=== PATIENT | female | born 1990 | race Caucasian/White ===

== ENCOUNTER → 2018-04-01 09:30 | Outpatient (CLI) | payer OTHER, SELFPAY ==
[2018-04-08 11:19] LABS: HPV Reflexed? NOT INDICATED
== END ==
PROVIDERS: Visit Provider Obstetrics & Gynecology
DX: Z12.4 Encounter for screening for malignant neoplasm of cervix (principal)
CPT/HCPCS: 88175; G0145

== ENCOUNTER → 2018-05-06 09:35 | Outpatient (CLI) | payer OTHER, SELFPAY ==
--- NOTE | 2018-05-06 09:39 | US_ITS ---
STUDY: ULTRASOUND OF THE FEMALE PELVIS - COMPLETE REASON FOR EXAM: Female, 27 years old. Irregular periods. LMP: April 30, 2018. TECHNIQUE: Transvaginal TECHNICAL QUALITY: Adequate. COMPARISON: None. FINDINGS: The uterus is anteverted and is in a midline position. The uterus measures 6.2 cm x 4.8 cm x 2.9 cm. Normal uterine cervix. The endometrium measures 1.1 mm in thickness, and is hyperechoic. There is no demonstrated endometrial mass. There is no demonstrated myometrial mass. I.U.D. - The patient does not have an I.U.D. The right ovary is visualized. The right ovary measures 2.3 cm x 3.0 cm x 2.4 cm. There is no right ovarian cyst or ovarian mass. There is no visualized right adnexal mass or complex lesion. There is normal arterial and normal venous vascularity. The left ovary is visualized. The left ovary measures 2.7 cm x 1.7 cm x 2.0 cm. There is no left ovarian cyst or ovarian mass. There is no visualized left adnexal mass or complex lesion. There is normal arterial and normal venous vascularity. There is no fluid in the cul-de-sac. Polycystic ovary disease: No. US/Transvaginal Non- IMPRESSION: Normal female pelvis. Electronically Signed: Jairo Brown MD at 12:49 EDT Tel [phone], Service support ,
== END ==
PROVIDERS: Family Provider Family Medicine; PCP Family Medicine; Visit Provider Obstetrics & Gynecology
DX: N92.6 Irregular menstruation, unspecified (principal)
CPT/HCPCS: 76830; 93976

== ENCOUNTER → 2018-08-30 11:25 | Outpatient (CLI) | payer OTHER, SELFPAY ==
[2018-04-01 09:12] VITALS: BMI 24.8
--- NOTE | 2018-08-30 11:30 | RAD_ITS ---
STUDY: HYSTEROSALPINGOGRAM. REASON FOR EXAM: Female, 27 years old. Infertility. FLUOROSCOPY TIME (if supplied): (1:03) minutes/seconds. 2 fluoroscopic images were obtained. TECHNIQUE: A hysterosalpingogram was performed by the maintenance mechanic engine. Imaging was provided. COMPARISON: None. FINDINGS: There is opacification of the uterus. No uterine abnormalities seen. The fallopian tubes are not visualized. RAD/Salpingogram IMPRESSION: Nonvisualization of the fallopian tubes. Electronically Signed: Jairo Brown MD at 15:48 EST Tel [phone], Service support ,
--- NOTE | 2018-09-01 05:30 | OP.PCM_ITS ---
Problem List (1) Irregular menses Status: Acute Comment: US bloodwork (2) Primary female infertility Status: Acute Comment: recommend full workup. nlFSH low normal estradiol Operative Report Date of Procedure: 08/30/18 Preop diagnosis: Infertility Postop diagnosis: Same plus bilateral tubal blockage Procedure: Hysterosalpingogram Surgeon: Rocio Ospina Implantable devices: None Complications: None Findings: Bilateral tubal blockage beginning proximally and normal uterine cavity Operative details: Patient was taken to the x-ray room and was placed on the x- ray table and was in the dorsal lithotomy position. Speculum was placed in the vagina and the cervix prepped with Betadine and the HSG catheter was easily introduced into the uterus and speculum removed. Radiologist was brought in and while pushing radiopaque dye into the uterus via the HSG catheter the radiologist took multiple images and views and confirmed bilateral tubal blockage was seen proximally. No gross uterine filling defects or abnormalities were seen. All instruments removed from the vagina and the uterus without complication. Patient tolerated the procedure well.
== END ==
PROVIDERS: Family Provider Family Medicine; PCP Family Medicine; Referring Provider Obstetrics & Gynecology; Visit Provider Obstetrics & Gynecology
DX: N97.9 Female infertility, unspecified (principal)
CPT/HCPCS: 58340; 74740

== ENCOUNTER → 2019-05-25 11:40 | Outpatient (CLI) | payer OTHER, SELFPAY ==
[2019-05-25 11:11] VITALS: BMI 24.8
[2019-05-25 12:08] LABS: Absolute Lymphocyte Count 1.61 X10^3/uL (0.83-4.51); Absolute Neutrophil Count 9.1 X10^3/uL (2.0-7.7); Basophil# 0.04 X10^3/uL; Basophil% 0.3 % (0-1); Eosinophil# 0.11 X10^3/uL; Eosinophils% 0.9 % (0-5); Hemoglobin 13.5 g/dL (12.0-15.0); Lymphocyte # 1.61 X10^3/ul (4.0); Lymphocyte % 13.8 % (19-41); Mean Corp Hgb Conc 33.8 g/dL (32-36); Mean Corpuscular Hgb 31.6 pg (27.0-32.0); Mean Corpuscular Volume 93.7 fL (81-99); Mean Platelet Vol. 8.5 fl (6.2-12.0); Monocyte# 0.78 X10^3/uL; Monocyte% 6.7 % (0-10); NRBC Flagged by Analyzer 0 % (0-5); Neutrophil # 9.08 X10^3/uL (2.7-7.7); Neutrophil % 77.7 % (47-70); Platelet Count 296 K/mm3 (150-450); RBC Distribution Width CV 13.2 % (11.6-14.6); RBC Distribution Width SD 45.5 fl (35.1-43.9); Red Blood Count 4.27 M/mm3 (4.2-5.4); White Blood Count 11.7 K/mm3 (4.4-11.0)
[2019-05-25 13:29] LABS: HIV - WCH Non-Reactive (Nonreactive); Rubella IgG 52.8 IU/mL
[2019-05-27 02:41] LABS: Rapid Plasmin Reagin (RPR) NONREACTIVE (NONREACTIVE)
== END ==
PROVIDERS: Family Provider Family Medicine; PCP Family Medicine; Referring Provider Obstetrics & Gynecology; Visit Provider Obstetrics & Gynecology
DX: Z34.92 Encounter for supervision of normal pregnancy, unspecified, second trimester (principal); Z3A.20 20 weeks gestation of pregnancy
CPT/HCPCS: 36415; 85025; 86592; 86703; 86762; 86850; 86900; 86901

== ENCOUNTER → 2019-06-22 10:51 | Outpatient (CLI) | payer OTHER, SELFPAY ==
[2019-06-22 10:41] VITALS: BMI 24.8
[2019-06-22 11:19] LABS: Absolute Lymphocyte Count 1.54 X10^3/uL (0.83-4.51); Absolute Neutrophil Count 10.7 X10^3/uL (2.0-7.7); Basophil# 0.04 X10^3/uL; Basophil% 0.3 % (0-1); Eosinophil# 0.19 X10^3/uL; Eosinophils% 1.4 % (0-5); Hematocrit 40.3 % (37-47); Hemoglobin 13.6 g/dL (12.0-15.0); Lymphocyte # 1.54 X10^3/ul (4.0); Lymphocyte % 11.4 % (19-41); Mean Corp Hgb Conc 33.7 g/dL (32-36); Mean Corpuscular Hgb 31.7 pg (27.0-32.0); Mean Corpuscular Volume 93.9 fL (81-99); Mean Platelet Vol. 8.4 fl (6.2-12.0); Monocyte# 0.93 X10^3/uL; Monocyte% 6.9 % (0-10); NRBC Flagged by Analyzer 0 % (0-5); Neutrophil # 10.69 X10^3/uL (2.7-7.7); Neutrophil % 79.5 % (47-70); Platelet Count 314 K/mm3 (150-450); RBC Distribution Width CV 12.3 % (11.6-14.6); RBC Distribution Width SD 42.3 fl (35.1-43.9); Red Blood Count 4.29 M/mm3 (4.2-5.4); White Blood Count 13.5 K/mm3 (4.4-11.0)
[2019-06-22 11:28] LABS: Protein, Urine (Random) 8.4 mg/dL (<11.9); Protein:Creat Ratio 622 mg/g CRE (0-200)
[2019-06-22 11:34] LABS: ALB/GLOB Ratio 0.9 RATIO (0.9-2.4); AST(SGOT) 33 U/L (15-37); Alanine Aminotransfer ALT/SGPT 54 U/L (13-56); Albumin, Serum 3.2 g/dL (3.2-5.0); Alkaline Phosphatase 136 U/L (45-117); Anion Gap 5 (5-15); BUN 14 mg/dL (7-18); BUN/Creat Ratio 29.8 RATIO (10-20); Calcium,Total 8.7 mg/dL (8.5-10.1); Chloride 107 mmol/L (98-107); Creatinine, Serum 0.47 mg/dL (0.55-1.02); EST Glomerular Filtration Rate 168 mL/min (>60); Est Glom Filt Rate - Afr Amer 204 mL/min (>60); Globulin 3.7 g/dL (2.2-4.2); Glucose 88 mg/dL (74-106); Potassium 4.3 mmol/L (3.5-5.1); Protein, Total 6.9 g/dL (6.4-8.2); Sodium Level 139 mmol/L (136-145)
== END ==
PROVIDERS: Family Provider Family Medicine; PCP Family Medicine; Referring Provider Obstetrics & Gynecology; Visit Provider Obstetrics & Gynecology
DX: O16.2 Unspecified maternal hypertension, second trimester (principal)
CPT/HCPCS: 36415; 80053; 82570; 84156; 85025

== ENCOUNTER → 2019-06-24 06:35 | Outpatient (CLI) | payer OTHER, SELFPAY ==
[2019-06-22 10:41] VITALS: BMI 24.8
[2019-06-24 07:22] LABS: 24 Hour Urine Protein 412.3 mg/24HR (<150 MG/24HR); 24HR. UA Prot. Total Volume 3100 mL; 24HR. Urine Creatinine 1.31 g/24 HR (0.70-1.90); Urine Protein (24 Hour) 13.3 mg/dL (<11.9)
== END ==
PROVIDERS: Family Provider Family Medicine; PCP Family Medicine; Referring Provider Obstetrics & Gynecology; Visit Provider Obstetrics & Gynecology
DX: R80.9 Proteinuria, unspecified (principal); Z86.79 Personal history of other diseases of the circulatory system
CPT/HCPCS: 82570; 84156

== ENCOUNTER → 2019-07-20 10:01 | Outpatient (CLI) | payer OTHER, SELFPAY ==
[2019-07-20 09:16] VITALS: BMI 31.4
[2019-07-20 11:14] LABS: Absolute Lymphocyte Count 1.41 X10^3/uL (0.83-4.51); Basophil# 0.04 X10^3/uL; Basophil% 0.4 % (0-1); Eosinophil# 0.12 X10^3/uL; Eosinophils% 1.1 % (0-5); Hemoglobin 12.5 g/dL (12.0-15.0); Lymphocyte # 1.41 X10^3/ul (4.0); Lymphocyte % 12.6 % (19-41); Mean Corp Hgb Conc 32.9 g/dL (32-36); Mean Corpuscular Hgb 30.4 pg (27.0-32.0); Mean Corpuscular Volume 92.5 fL (81-99); Mean Platelet Vol. 8.7 fl (6.2-12.0); Monocyte# 0.59 X10^3/uL; Monocyte% 5.3 % (0-10); NRBC Flagged by Analyzer 0 % (0-5); Neutrophil % 80.1 % (47-70); Platelet Count 304 K/mm3 (150-450); RBC Distribution Width SD 39.8 fl (35.1-43.9); Red Blood Count 4.11 M/mm3 (4.2-5.4); White Blood Count 11.2 K/mm3 (4.4-11.0)
[2019-07-20 11:35] LABS: Glucose Challenge Gest 1H 50g 130 mg/dL (70-140)
[2019-07-20 15:53] LABS: Protein:Creat Ratio 608 mg/g CRE (0-200)
== END ==
PROVIDERS: Family Provider Family Medicine; PCP Family Medicine; Referring Provider Nurse Practitioner Women's Health; Visit Provider Nurse Practitioner Women's Health
DX: O09.00 Supervision of pregnancy with history of infertility, unspecified trimester (principal); Z86.79 Personal history of other diseases of the circulatory system; Z3A.00 Weeks of gestation of pregnancy not specified
CPT/HCPCS: 36415; 82570; 82950; 84156; 85025

== ENCOUNTER → 2019-08-05 09:20 | Outpatient (CLI) | payer OTHER, SELFPAY ==
[2019-08-05 09:16] VITALS: BMI 31.4
[2019-08-05 09:38] LABS: Protein, Urine (Random) < 6.0 mg/dL (<11.9)
== END ==
PROVIDERS: Family Provider Family Medicine; PCP Family Medicine; Visit Provider Obstetrics & Gynecology
DX: Z86.79 Personal history of other diseases of the circulatory system (principal)
CPT/HCPCS: 82570; 84156

== ENCOUNTER 2019-08-18 14:18 | Outpatient (CLI) | payer OTHER, SELFPAY ==
[2019-08-18 13:41] VITALS: BMI 31.4
[2019-08-18 14:28] VITALS: BMI 33.0
--- NOTE | 2019-08-21 05:40 | OB.TRI.PN ---
Progress Notes Date of Service: 08/18/19 Progress Note: FHT: 140 Moderate variability reactive no decelerations category I tracing [place]: no regular Contractions - Problem List (1) History of hypertension Status: Acute Comment: Wkly NST and RG at 32 wk and growth US q4 wk at 32wk check labs. home bp monitoring. no meds since large weight loss. (2) Status: Acute Qualifiers: Comment: nipt girl low risk. declines ntd screening. Anatomy US normal. (3) Supervision of with history of infertility Status: Acute Comment: PRR (Hep B) ALICE 10/10/19 girl Michelle Juve Multi Select Codes - Urinary/Genital Urinary/Genital CPT Codes: 17500-92 non-stress test Interp
== END 2019-08-18 14:55 | disposition home or self-care (01) ==
LOC: WPOUT 14:24 → WP 14:25
PROVIDERS: Family Provider Family Medicine; PCP Family Medicine; Referring Provider Obstetrics & Gynecology; Visit Provider Obstetrics & Gynecology
DX: O16.9 Unspecified maternal hypertension, unspecified trimester (principal); O09.00 Supervision of pregnancy with history of infertility, unspecified trimester; Z3A.00 Weeks of gestation of pregnancy not specified
CPT/HCPCS: 59025

== ENCOUNTER → 2019-08-19 08:33 | Outpatient (CLI) | payer OTHER, SELFPAY ==
[2019-08-18 13:41] VITALS: BMI 31.4
[2019-08-18 14:28] VITALS: BMI 33.0
--- NOTE | 2019-08-19 08:35 | US_ITS ---
STUDY: SECOND AND THIRD TRIMESTER OBSTETRICAL ULTRASOUND REASON FOR EXAM: Female, 28 years old. Growth. LMP: Provided due date of October 10, 2019. TECHNIQUE: Transabdominal TECHNICAL QUALITY: Adequate. PRIOR ULTRASOUND: None. FINDINGS: There is a single intrauterine fetus. The fetus is in a cephalic presentation. There is demonstrated cardiac activity with a heart rate of 140 bpm. There is a normal amniotic fluid volume. The largest amniotic fluid pocket measures 3.34 cm. The amniotic fluid index (RG) is 9.01 cm. The placenta is anterior in location and is not low lying. There are Grade 1 placental changes. Venous lakes are seen within the placenta. The cervix measures 3.4 cm in length. The adnexal regions are not visualized. BIOMETRY: BPD: 8.3 cm: 33 weeks, 2 days HC: 10.45 cm: 32 weeks, 5 days AC: 30.53 cm: 33 weeks, 6 days FL: 6.03 cm: 31 weeks, 2 days CI: 79.38 FL/BPD: 72.78 FL/HC: 21.1 FL/AC: 19.77 HC/AC: 1.07 age by current US: 32 weeks, 5 days. ALICE by current US: October 09, 2019. Estimated weight: 1978 grams, +/- 293 grams, 37 %. Age by LMP: 32 weeks, 4 days. ALICE by LMP: October 10, 2019. US/OB Limited With Biometrics IMPRESSION: 1. Live single intrauterine at 32 weeks, 5 days. ALICE is October 09, 2019. This correlates with the provided ALICE. 2. EFW 1978 g. 3. RG of 9.01 cm. 4. Anterior grade 1 placenta. 5. Vertex presentation. Electronically Signed: Nick Mclain DO at 23:48 EST Tel [phone], Service support ,
== END ==
PROVIDERS: Family Provider Family Medicine; PCP Family Medicine; Referring Provider Nurse Practitioner Women's Health; Visit Provider Nurse Practitioner Women's Health
DX: Z86.79 Personal history of other diseases of the circulatory system (principal)
CPT/HCPCS: 76816

== ENCOUNTER → 2019-09-02 18:14 | Outpatient (CLI) | payer OTHER, SELFPAY ==
[2019-09-01 08:51] VITALS: BMI 33.0
--- NOTE | 2019-09-02 18:29 | US_ITS ---
STUDY: SECOND AND THIRD TRIMESTER OBSTETRICAL ULTRASOUND - LIMITED REASON FOR EXAM: Female, 28 years old RG assessment. LMP: January 03, 2019. PRIOR ULTRASOUND: Comparison is made with prior examination dated August 19, 2019. TECHNIQUE: Transabdominal TECHNICAL QUALITY: Adequate. FINDINGS: There is a single intrauterine fetus. The fetus is in a cephalic presentation. There is demonstrated cardiac activity with a heart rate of 140 bpm. There is a normal amniotic fluid volume. The largest amniotic fluid pocket measures 5.6 cm. The amniotic fluid index (RG) is 15.35 cm. The placenta is anterior in location and is not low lying. There are Grade 2 placental changes. The cervix measures 3.24 cm in length. US/OB Limited (No Biometrics) IMPRESSION: Normal amniotic fluid. Electronically Signed: Jairo Brown, at 8:45 EST , Service support ,
== END ==
PROVIDERS: Family Provider Family Medicine; PCP Family Medicine; Referring Provider Nurse Practitioner Women's Health; Visit Provider Nurse Practitioner Women's Health
DX: Z03.71 Encounter for suspected problem with amniotic cavity and membrane ruled out (principal)
CPT/HCPCS: 76815

== ENCOUNTER → 2019-09-07 08:41 | Outpatient (CLI) | payer OTHER, SELFPAY ==
[2019-09-07 08:41] VITALS: BMI 33.0
[2019-09-07 08:57] LABS: Absolute Lymphocyte Count 1.37 X10^3/uL (0.83-4.51); Absolute Neutrophil Count 9.7 X10^3/uL (2.0-7.7); Basophil# 0.05 X10^3/uL; Basophil% 0.4 % (0-1); Eosinophils% 1.6 % (0-5); Hematocrit 38.2 % (37-47); Hemoglobin 12.5 g/dL (12.0-15.0); Lymphocyte # 1.37 X10^3/ul (4.0); Mean Corp Hgb Conc 32.7 g/dL (32-36); Mean Corpuscular Volume 88.6 fL (81-99); Mean Platelet Vol. 8.4 fl (6.2-12.0); Monocyte# 1.03 X10^3/uL; Monocyte% 8.3 % (0-10); NRBC Flagged by Analyzer 0 % (0-5); Neutrophil # 9.73 X10^3/uL (2.7-7.7); Platelet Count 298 K/mm3 (150-450); RBC Distribution Width CV 12.6 % (11.6-14.6); Red Blood Count 4.31 M/mm3 (4.2-5.4); White Blood Count 12.5 K/mm3 (4.4-11.0)
[2019-09-07 09:11] LABS: Creatinine, Urine (random) < 13.00 mg/dL (NO RANGE EST.); Protein, Urine (Random) < 6.0 mg/dL (<11.9)
[2019-09-07 09:12] LABS: ALB/GLOB Ratio 0.7 RATIO (0.9-2.4); AST(SGOT) 10 U/L (15-37); Alanine Aminotransfer ALT/SGPT 23 U/L (13-56); Albumin, Serum 2.9 g/dL (3.2-5.0); Alkaline Phosphatase 156 U/L (45-117); Anion Gap 4 (5-15); BUN 13 mg/dL (7-18); BUN/Creat Ratio 22.6 RATIO (10-20); Calcium,Total 8.6 mg/dL (8.5-10.1); Chloride 109 mmol/L (98-107); Creatinine, Serum 0.58 mg/dL (0.55-1.02); EST Glomerular Filtration Rate 133 mL/min (>60); Est Glom Filt Rate - Afr Amer 161 mL/min (>60); Globulin 3.9 g/dL (2.2-4.2); Glucose 85 mg/dL (74-106); Protein, Total 6.8 g/dL (6.4-8.2); Sodium Level 139 mmol/L (136-145)
== END ==
PROVIDERS: Family Provider Family Medicine; PCP Family Medicine; Referring Provider Obstetrics & Gynecology; Visit Provider Obstetrics & Gynecology
DX: Z86.79 Personal history of other diseases of the circulatory system (principal)
CPT/HCPCS: 36415; 80053; 82570; 84156; 85025

== ENCOUNTER 2019-09-12 06:00 | Outpatient (CLI) | payer OTHER, SELFPAY ==
[2019-09-07 08:41] VITALS: BMI 33.0
[2019-09-12 06:28] VITALS: BMI 33.9
[2019-09-12 07:12] LABS: Hematocrit 38.2 % (37-47); Hemoglobin 12.5 g/dL (12.0-15.0); Mean Corp Hgb Conc 32.7 g/dL (32-36); Mean Corpuscular Hgb 28.7 pg (27.0-32.0); Mean Corpuscular Volume 87.6 fL (81-99); Mean Platelet Vol. 8.7 fl (6.2-12.0); Platelet Count 283 K/mm3 (150-450); RBC Distribution Width CV 12.9 % (11.6-14.6); RBC Distribution Width SD 40.9 fl (35.1-43.9); Red Blood Count 4.36 M/mm3 (4.2-5.4)
[2019-09-12 07:27] LABS: Protein, Urine (Random) 10.1 mg/dL (<11.9); Protein:Creat Ratio 342 mg/g CRE (0-200)
[2019-09-12 07:27] LABS: AST(SGOT) 34 U/L (15-37); Alanine Aminotransfer ALT/SGPT 48 U/L (13-56); Creatinine, Serum 0.59 mg/dL (0.55-1.02); EST Glomerular Filtration Rate 129 mL/min (>60); Est Glom Filt Rate - Afr Amer 156 mL/min (>60); Estimated Creatinine Clearance 134.08 ml/min; Uric Acid 4.5 mg/dL (2.6-6.0)
[2019-09-12 07:35] LABS: Prothrombin Time (Protime)PT. 12.6 SECONDS (11.7-14.9)
[2019-09-12 07:36] LABS: Partial Thromboplast Time 32.9 Seconds (24.1-36.2)
[2019-09-12] MEDS: 0.9% Saline Lock 10 ML Syringe IV (07:52)
[2019-09-12] MEDS: Ondansetron 4 MG/2 ML Vial IV (07:52)
--- NOTE | 2019-09-13 05:27 | OB.TRI.NOTE ---
- Problem List (1) Nausea & vomiting Status: Resolved (2) False labor Status: Resolved History of Present Illness Was patient seen by the physician?: No Reason For Visit: R/O LABOR History of Present Illness: seen for false labor Allergies No Known Allergies Allergy (Verified 09/14/19 09:13) - Pertinent Past Medical History Surgical History: Past Surgical History (Last Reviewed 09/07/19 @ 07:56 by Leisa Naranjo) S/P tonsillectomy Laboratory Studies: Laboratory Tests 09/12/19 09/12/19 09/12/19 Range/Units 07:15 07:00 07:00 WBC (4.4-11.0) K/mm3 RBC (4.2-5.4) M/mm3 Hgb (12.0-15.0) g/dL Hct (37-47) % MCV (81-99) fL MCH (27.0-32.0) pg MCHC (32-36) g/dL RDW Std Deviation (35.1-43.9) fl RDW Coeff of Corwin (11.6-14.6) % Plt Count (150-450) K/mm3 MPV (6.2-12.0) fl PT 12.6 Cancelled INR 1.0 Cancelled APTT 32.9 Cancelled Creatinine 0.59 (0.55-1.02) mg/dL Estim Creat Clear Calc 134.08 ml/min Est GFR (MDRD) Af Amer 156 (>60) mL/min Est GFR (MDRD) Non-Af 129 (>60) mL/min Uric Acid 4.5 (2.6-6.0) mg/dL AST 34 (15-37) U/L ALT 48 (13-56) U/L U Random Total Protein (<11.9) mg/dL Urine Creatinine (NO RANGE EST.) mg/dL Protein/Creatinin Ratio (0-200) mg/g CRE 09/12/19 09/12/19 Range/Units 07:00 06:45 WBC 7.0 (4.4-11.0) K/mm3 RBC 4.36 (4.2-5.4) M/mm3 Hgb 12.5 (12.0-15.0) g/dL Hct 38.2 (37-47) % MCV 87.6 (81-99) fL MCH 28.7 (27.0-32.0) pg MCHC 32.7 (32-36) g/dL RDW Std Deviation 40.9 (35.1-43.9) fl RDW Coeff of Corwin 12.9 (11.6-14.6) % Plt Count 283 (150-450) K/mm3 MPV 8.7 (6.2-12.0) fl PT INR APTT Creatinine (0.55-1.02) mg/dL Estim Creat Clear Calc ml/min Est GFR (MDRD) Af Amer (>60) mL/min Est GFR (MDRD) Non-Af (>60) mL/min Uric Acid (2.6-6.0) mg/dL AST (15-37) U/L ALT (13-56) U/L U Random Total Protein 10.1 (<11.9) mg/dL Urine Creatinine 29.50 (NO RANGE EST.) mg/dL Protein/Creatinin Ratio 342 H (0-200) mg/g CRE NST - FHR Rate Baby A Baseline: 130 Variability:: Moderate Accelerations:: 15 x 15 Decelerations:: None NST Reactive:: Yes FHR Category:: Category I Uterine Activity:: no regular Impression/Plan false labor reactive nst Multi Select Codes - Urinary/Genital Urinary/Genital CPT Codes: 76116-08 non-stress test Interp
== END 2019-09-12 08:30 | disposition home or self-care (01) ==
LOC: WPOUT 06:27 → WP 06:27
PROVIDERS: PCP Family Medicine; Referring Provider Obstetrics & Gynecology; Visit Provider Obstetrics & Gynecology
DX: O47.9 False labor, unspecified (principal); Z3A.00 Weeks of gestation of pregnancy not specified
CPT/HCPCS: 36415; 59025; 59050; 82565; 82570; 84156; 84450; 84460; 84550; 85027; 85610; 85730; 99218; A4216; G0378; J2405

== ENCOUNTER → 2019-09-14 08:35 | Outpatient (CLI) | payer OTHER, SELFPAY ==
[2019-08-18 13:41] VITALS: BMI 31.4
[2019-09-12 06:28] VITALS: BMI 33.9
--- NOTE | 2019-09-14 08:37 | US_ITS ---
STUDY: SECOND AND THIRD TRIMESTER OBSTETRICAL ULTRASOUND REASON FOR EXAM: Female, 28 years old growth LMP: January 02, 2019. TECHNIQUE: Transabdominal TECHNICAL QUALITY: Adequate. PRIOR ULTRASOUND: Comparison is made with prior examination dated September 02, 2019. FINDINGS: There is a single intrauterine fetus. The fetus is in a cephalic presentation. There is demonstrated cardiac activity with a heart rate of 136 bpm. There is a normal amniotic fluid volume. The largest amniotic fluid pocket measures 5.5 cm. The amniotic fluid index (RG) is 13.5 cm. The placenta is anterior in location and is not low lying. There are Grade 1 placental changes. The cervix measures 3.5 cm in length. The adnexal regions are not visualized. BIOMETRY: BPD: 9.06 cm: 36 weeks, 5 days HC: 33.19 cm: 37 weeks, 5 days AC: 33.0 cm: 36 weeks, 6 days FL: 6.77 cm: 34 weeks, 5 days CI: 79% FL/BPD: 75% FL/HC: FL/AC: 21% HC/AC: 1.01 age by current US: 37 weeks, 0 days. ALICE by current US: October 05, 2019. Estimated weight: 2949 grams, +/- 436 grams, 54 %. age by prior US: 36 weeks, 3 days. ALICE by prior US: October 09, 2019. Age by LMP: 36 weeks, 2 days. ALICE by LMP: October 10, 2019. US/OB Limited With Biometrics IMPRESSION: Single live intrauterine gestation with a mean gestational age of 36 weeks and 3 days. The measurements obtained today fall within normal expected range. Electronically Signed: Jairo Brown, at 15:44 EST , Service support ,
[2019-09-14 14:04] LABS: Protein, Urine (Random) 7.9 mg/dL (<11.9); Protein:Creat Ratio 391 mg/g CRE (0-200)
== END ==
PROVIDERS: Obstetrics & Gynecology; Family Provider Family Medicine; PCP Family Medicine; Referring Provider Nurse Practitioner Women's Health; Visit Provider Nurse Practitioner Women's Health
DX: Z34.93 Encounter for supervision of normal pregnancy, unspecified, third trimester (principal); Z3A.36 36 weeks gestation of pregnancy; Z86.79 Personal history of other diseases of the circulatory system
CPT/HCPCS: 76816; 82570; 84156; 87081

== ENCOUNTER → 2019-09-21 08:47 | Outpatient (CLI) | payer OTHER, SELFPAY ==
[2019-09-01 08:51] VITALS: BMI 33.0
[2019-09-14 09:17] VITALS: BMI 33.9
--- NOTE | 2019-09-21 08:48 | US_ITS ---
STUDY: SECOND AND THIRD TRIMESTER OBSTETRICAL ULTRASOUND - LIMITED REASON FOR EXAM: Female, 28 years old RG LMP: January 03, 2019. PRIOR ULTRASOUND: Comparison is made with prior examination dated September 14, 2019. TECHNIQUE: Transabdominal TECHNICAL QUALITY: Adequate. FINDINGS: There is a single intrauterine fetus. The fetus is in a cephalic presentation. There is demonstrated cardiac activity with a heart rate of 144 bpm. There is a normal amniotic fluid volume. The largest amniotic fluid pocket measures 5.0 cm. The amniotic fluid index (RG) is 11.0 cm. The placenta is anterior in location and is not low lying. There are Grade 1 placental changes. Age by LMP: 37 weeks, 2 days. ALICE by LMP: October 10, 2019. US/OB Limited (No Biometrics) IMPRESSION: Normal amniotic fluid index. Electronically Signed: Jairo Brown, at 15:01 EST , Service support ,
[2019-09-21 10:44] LABS: Absolute Lymphocyte Count 1.88 X10^3/uL (0.83-4.51); Absolute Neutrophil Count 10.9 X10^3/uL (2.0-7.7); Basophil# 0.04 X10^3/uL; Basophil% 0.3 % (0-1); Eosinophil# 0.23 X10^3/uL; Eosinophils% 1.6 % (0-5); Hematocrit 38.4 % (37-47); Hemoglobin 12.5 g/dL (12.0-15.0); Lymphocyte # 1.88 X10^3/ul (4.0); Lymphocyte % 13.3 % (19-41); Mean Corp Hgb Conc 32.6 g/dL (32-36); Mean Corpuscular Volume 86.1 fL (81-99); Mean Platelet Vol. 8.6 fl (6.2-12.0); Monocyte# 0.95 X10^3/uL; Monocyte% 6.7 % (0-10); NRBC Flagged by Analyzer 0 % (0-5); Neutrophil # 10.93 X10^3/uL (2.7-7.7); Neutrophil % 77.5 % (47-70); Platelet Count 321 K/mm3 (150-450); RBC Distribution Width CV 12.8 % (11.6-14.6); RBC Distribution Width SD 39.6 fl (35.1-43.9); Red Blood Count 4.46 M/mm3 (4.2-5.4); White Blood Count 14.1 K/mm3 (4.4-11.0)
[2019-09-21 11:03] LABS: ALB/GLOB Ratio 0.7 RATIO (0.9-2.4); AST(SGOT) 17 U/L (15-37); Alanine Aminotransfer ALT/SGPT 36 U/L (13-56); Albumin, Serum 2.8 g/dL (3.2-5.0); Alkaline Phosphatase 179 U/L (45-117); Anion Gap 5 (5-15); BUN 11 mg/dL (7-18); Calcium,Total 8.6 mg/dL (8.5-10.1); Chloride 107 mmol/L (98-107); Creatinine, Serum 0.55 mg/dL (0.55-1.02); EST Glomerular Filtration Rate 140 mL/min (>60); Est Glom Filt Rate - Afr Amer 170 mL/min (>60); Globulin 3.9 g/dL (2.2-4.2); Glucose 90 mg/dL (74-106); Potassium 4.2 mmol/L (3.5-5.1); Protein, Total 6.7 g/dL (6.4-8.2); Sodium Level 136 mmol/L (136-145)
== END ==
PROVIDERS: Obstetrics & Gynecology; Family Provider Family Medicine; PCP Family Medicine; Referring Provider Nurse Practitioner Women's Health; Visit Provider Nurse Practitioner Women's Health
DX: Z86.79 Personal history of other diseases of the circulatory system (principal)
CPT/HCPCS: 36415; 76815; 80053; 85025

== ENCOUNTER 2019-09-26 12:22 | Inpatient (IN) | payer OTHER, SELFPAY ==
[2019-06-29 09:26] VITALS: BMI 31.4
[2019-09-21 09:18] VITALS: BMI 33.9
[2019-09-26 07:42] VITALS: BMI 34.2
[2019-09-26 08:04] LABS: Hematocrit 38.5 % (37-47); Hemoglobin 12.4 g/dL (12.0-15.0); Mean Corp Hgb Conc 32.2 g/dL (32-36); Mean Corpuscular Hgb 27.5 pg (27.0-32.0); Mean Corpuscular Volume 85.4 fL (81-99); Mean Platelet Vol. 8.6 fl (6.2-12.0); Platelet Count 354 K/mm3 (150-450); RBC Distribution Width SD 39.8 fl (35.1-43.9); Red Blood Count 4.51 M/mm3 (4.2-5.4); White Blood Count 12.3 K/mm3 (4.4-11.0)
[2019-09-26 08:12] LABS: International Normalized Ratio 0.9; Prothrombin Time (Protime)PT. 12.2 SECONDS (11.7-14.9)
[2019-09-26 08:13] LABS: Partial Thromboplast Time 30.9 Seconds (24.1-36.2)
[2019-09-26 08:14] LABS: Protein, Urine (Random) < 6.0 mg/dL (<11.9); Protein:Creat Ratio 267 mg/g CRE (0-200)
[2019-09-26 08:18] LABS: AST(SGOT) 13 U/L (15-37); Alanine Aminotransfer ALT/SGPT 22 U/L (13-56); EST Glomerular Filtration Rate 126 mL/min (>60); Est Glom Filt Rate - Afr Amer 152 mL/min (>60); Estimated Creatinine Clearance 131.85 ml/min; Uric Acid 3.6 mg/dL (2.6-6.0)
[2019-09-26] MEDS: Acetaminophen 500 MG Tablet 1000 MG PO (08:20)
--- NOTE | 2019-09-26 13:15 | PCM.HP.OB ---
- Problem List (1) History of hypertension Status: Acute Comment: Wkly NST and RG at 32 wk and growth US q4 wk at 32wk. Weekly pre-eclampsia labs. nl baseline labs. home bp monitoring nl. no meds since weight loss. discussed IOL 39-40 weeks (2) Status: Acute Qualifiers: Comment: nipt girl low risk. declines ntd screening. Anatomy US normal. (3) Supervision of with history of infertility Status: Acute Comment: PRR ALICE 10/10/19 girl Michelle Thania History Date of Admission: 09/26/19 Final ALICE: 10/10/19 Gestational age: 38 Weeks and 0 Days History of this : This is a 28 year-old, , at 38 weeks gestational age presents for induction of labor secondary to chronic hypertension and headache in . Patient is a history of chronic hypertension that has been uncontrolled on medications in the past and resolved with weight loss. She has had intermittent elevated blood pressures throughout this but has not required medication. Today she developed elevated blood pressures at home for the first time in the whole and complains of dizziness headache to the point where she does not feel comfortable driving. Repeat preeclampsia labs are within normal limits. Surgical History: Surgical History (Last Reviewed 09/07/19 @ 07:56 by Leisa Naranjo) S/P tonsillectomy Z90.89 Allergies No Known Allergies Allergy (Verified 09/26/19 08:01) Home Medications: Home Medications vitamin#30 30 mg iron-10 mg iron-folic acid 1 mg-omg3 capsule 1 cap PO DAILY cap 04/27/19 ondansetron 4 mg disintegrating tablet 4 mg PO Q4H PRN #60 tab 09/13/19 Smoking Status: Never smoker Number of Fetus(es): 1 NST - FHR Rate Baby A Baseline: 130 Variability:: Moderate Accelerations:: 15 x 15 Decelerations:: None NST Reactive:: Yes FHR Category:: Category I Uterine Activity:: no regular History Past Pregnancies: Past Pregnancies Delivery Date Name GA/ Weeks Outcome Route Wt Infant Sex Labor Length Anesthesia Delivery Location Provider FOB Labs: Mom's Labs & Results 09/26/19 09/26/19 09/26/19 07:40 07:40 07:40 WBC 12.3 H RBC 4.51 Hgb 12.4 Hct 38.5 MCV 85.4 MCH 27.5 MCHC 32.2 RDW Std Deviation 39.8 RDW Coeff of Corwin 13.0 Plt Count 354 MPV 8.6 PT 12.2 INR 0.9 APTT 30.9 Creatinine 0.60 Estim Creat Clear Calc 131.85 Est GFR (MDRD) Af Amer 152 Est GFR (MDRD) Non-Af 126 Uric Acid 3.6 AST 13 L ALT 22 U Random Total Protein Urine Creatinine Protein/Creatinin Ratio Blood Type Antibody Screen 09/26/19 09/26/19 07:40 07:40 WBC RBC Hgb Hct MCV MCH MCHC RDW Std Deviation RDW Coeff of Corwin Plt Count MPV PT INR APTT Creatinine Estim Creat Clear Calc Est GFR (MDRD) Af Amer Est GFR (MDRD) Non-Af Uric Acid AST ALT U Random Total Protein < 6.0 Urine Creatinine 19.10 Protein/Creatinin Ratio 267 H Blood Type O POSITIVE Antibody Screen NEGATIVE Course Did the patient receive Yes care? Labs Blood Type: O RH: POSITIVE RPR/VDRL/Syphilis Nonreactive Rubella status Immune HbSAg Negative Date Done: 09/09/19 Chlamydia Negative Gonorrhea Negative HIV/AIDS Non-Reactive Group B Strep: Negative Current Obstetrical History Gestational Diabetes No Incompetent Cervix No Infertility Yes IUGR No Macrosomia No Hypertension/Pre-eclampsia No Placenta Previa/Abruption No PTL/PROM No Uterine anomaly No Oligohydramnios No Polyhydramnios No Multiple gestation No Past Medical History Asthma No Diabetes No Hypertension Yes Heart disease No Mitral valve prolapse No Neurologic/Seizure disorder/ No Migraines Kidney disease No Liver disease No Varicosities No Clotting disorders/Hx of DVT No Thyroid Dysfunction No Other medical diseases No Psychiatric disorders No Major trauma No Abnormal PAP smear No Sleep apnea No Mammogram in the last 2 years No Social History Marital Status: Alleged father thania Hx Smoking No Smoking Status Never smoker Expected Delivery Method: Spontaneous Vaginal Review of Systems Constitutional: Denies: Fever, Malaise Eyes: Denies: Blurred vision, Vision Change HEENT: Denies: Head Aches, Visual Changes Cardiovascular: Denies: Chest Pain, Palpitations Respiratory: Denies: Cough, Shortness of Breath, Wheezing Gastrointestinal: Denies: Abdominal Pain, Diarrhea, Nausea, Vomiting Genitourinary: Denies: Dysuria, Hematuria Musculoskeletal: Denies: Joint Pain, Muscle pain Skin: Denies: Lesions, Rash Neurological: Denies: Blurred vision, Focal weakness, Headaches Psychiatric: Denies: Anxiety, Depression Endocrine: Denies: Heat/ Cold Intolerance Hematologic/ Lymphatic: Denies: Easy Bruising, Easy Bleeding Physical Exam General: Alert, Cooperative, No apparent distress HEENT: Atraumatic, Normocephalic. Negative for: Thyromegaly, Lymphadenopathy Cardiovascular: Regular rate Lungs: Normal air movement Abdomen: Soft, Non Tender, Gravid Neurological: Deep Tendon Reflexes 2+/4 and Symmetrical, Neuro grossly intact. Negative for: Clonus CASH PROCESSING SPECIALIST: Normal external genitalia. Negative for: Vulvar lesions Estimated gestational size: Appropriate for gestational size Presentation: Cephalic Cervix Dilation (cm): 2 Assessment/Plan All Active Problems (Last Reviewed 09/21/19 @ 09:18 by Leisa Naranjo) History of hypertension (Acute) (Acute) Supervision of with history of infertility (Acute) False labor (Resolved) Genetic testing (Resolved) Irregular menses (Resolved) Nausea & vomiting (Resolved) Primary female infertility (Resolved) This is a 28 year-old, at 38 weeks gestational age presents IOL cHTN and headache in Patient presents IOL, plan management for , pitocin/AROM after mcbride Pain management: plans epidural. GBS negative. Management of any complications: cHTN with neurologic symptoms, plan IOL, start magnesium if elevated bps I have reviewed the [facility] and made any clinically relevant updates..
[2019-09-26] MEDS: Lactated Ringers 1,000 ML 50 ML IV (14:00)
[2019-09-26] MEDS: 0.9% Normal Saline Single 100 ML IV.SOLN. IY (14:00)
[2019-09-26] MEDS: Oxytocin 30 units/NS 500 ml 30 UNITS/500 ML IV.SOLN IV (15:28)
[2019-09-26] MEDS: Lactated Ringers 500 ML 999 ML IV (17:09)
[2019-09-26] MEDS: fentaNYL-bupivacaine (epidural) 100 ML BAG EPIDURAL ×2 (18:12→22:50)
[2019-09-26] MEDS: Acetaminophen 325 MG Tablet PO (22:00)
[2019-09-26] MEDS: Lactated Ringers 1,000 ML 200 ML IV (22:08)
--- NOTE | 2019-09-26 23:05 | PCM.PN.BLA ---
Progress Note iol cHTN with headache. pit per protocol. arom clear fluid fht 130s moderate variability reactive no decels cat I tracing toco irregular a/p iol cHTN- s/p pit and fb- iupc placed clear AROM, pit per protocol
[2019-09-27] MEDS: Lactated Ringers 1,000 ML 200 ML IV (03:15)
[2019-09-27] MEDS: fentaNYL-bupivacaine (epidural) 100 ML BAG EPIDURAL (03:56)
[2019-09-27] MEDS: Oxytocin 30 units/NS 500 ml 30 UNITS/500 ML IV.SOLN 334 UNITS IV (05:34)
--- NOTE | 2019-09-27 06:40 | PCM.OPRPT ---
Problem List (1) History of hypertension Status: Acute Comment: Wkly NST and RG at 32 wk and growth US q4 wk at 32wk. Weekly pre-eclampsia labs. nl baseline labs. home bp monitoring nl. no meds since weight loss. discussed IOL 39-40 weeks (2) Status: Acute Qualifiers: Comment: nipt girl low risk. declines ntd screening. Anatomy US normal. (3) Supervision of with history of infertility Status: Acute Comment: PRR ALICE 10/10/19 girl Michelle Juve Vaginal Delivery Maternal Presentation: Medically Indicated Induction iol chtn Method of Induction: Pitocin, Loera Bulb Amniotic Membrane Rupture Type: Artificial Amniotic Fluid Description: Clear Final ALICE: 10/10/19 Gestational age: 38 Weeks and 1 Days Date of Procedure: 09/27/19 Pre-Operative Diagnosis: iol chtn with neuro symptoms Post-Operative Diagnosis: same Surgery/ Procedure Performed: Spontaneous Vaginal Delivery Type of Anesthesia: Epidural Description of Procedure: Patient began pushing and delivered the head in the MAICOL presentation. The head was delivered atraumatically . The anterior and posterior shoulders delivered without complication followed by the rest of the and the was placed on the maternal abdomen. Delayed cord clamping was employed for approximately 60 seconds. Cord was clamped and cut and gentle traction was applied to the cord and the placenta delivered spontaneously immediately following it was noted to be intact with three-vessel cord. The perineum and vagina were inspected and noted to have a small second-degree perineal laceration that was repaired in the usual fashion with 3-0 Vicryl Rapide. EBL was 300 cc. Patient and tolerated delivery well. Presentation: MAICOL Placental Delivery Description: Spontaneous Placenta Disposition: [facility] Cord Vessel Description: 3 Vessels Cord Entanglement: None Estimated Blood Loss: 300 A gender: Female Episiotomy Description: None Laceration: Perineal Extension/lac, 2nd degree Medications given after delivery: IV Pitocin Complications: None
[2019-09-27] MEDS: Naproxen 250 MG Tablet 500 MG PO (08:30)
--- NOTE | 2019-09-27 08:36 | PCA ---
SN provided patient with 800ml ice water at this time. Patient safety checks in place. Patient denies any further needs at this time.
[2019-09-27 12:36] VITALS: BP 127/86; PULSE 72; RESP 15; TEMP 36.2
--- NOTE | 2019-09-27 14:07 | NURSING ---
Bedside shift report given.
[2019-09-27 15:40] VITALS: BP 133/80; PULSE 78; RESP 14; TEMP 37.1
[2019-09-27 20:30] VITALS: BP 138/71; PULSE 93; RESP 16; TEMP 36.6; O2SAT 97
[2019-09-28] VITALS (7 sets, daily range): BP systolic 118–139; BP diastolic 70–83; PULSE 73–89; RESP 16–18; TEMP 36.3–36.7; O2SAT 97–99
[2019-09-28] MEDS: Senna/Docusate Sodium 1 Tablet PO (04:12)
[2019-09-28] MEDS: Naproxen 250 MG Tablet 500 MG PO ×2 (09:06→19:34)
--- NOTE | 2019-09-28 09:33 | PCM.PN.OB ---
Subjective: Doing well, no complaints.Pain controlled. Denies CP, SOB, N,V. Ambulating well, tolerating po. Lochia moderate, bottle feeding. - Physical Exam Vitals/I&O's: Vital Signs Temp Pulse Resp BP Pulse Ox 97.3 F L 84 16 118/75 98 09/28/19 08:00 09/28/19 08:00 09/28/19 08:00 09/28/19 08:00 09/28/19 08:00 Oxygen Delivery Method Room Air Weight: 212 lb Body Mass Index (BMI) 34.2 Intake and Output for Last 24 Hours 09/26/19 09/27/19 09/28/19 23:59 23:59 23:59 Intake Total 1531.17 / 153.17 Output Total 2400 / 2400 Balance 1531. / 153. -383.83 / -383.83 General: Alert, Oriented x3 Abdomen: Soft, Non Tender, Non-Distended, - - FF below U Current Medications Acetaminophen (Tylenol) 1,000 mg PO Q8H PRN PRN PRN Reason: Pain Score 1-3/10 Bisacodyl (Dulcolax) 10 mg RECTAL UD PRN PRN Reason: If no BM Dibucaine (Dibucaine) 1 applic TOPICAL TID PRN PRN; Protocol PRN Reason: Discomfort Hydrocortisone (Hytone) 1 applic TOPICAL TID PRN PRN; Protocol PRN Reason: Discomfort Naproxen (Naprosyn) 500 mg PO Q8H PRN PRN PRN Reason: Pain Score 1-3/10 Last Admin: 09/28/19 09:06 Dose: 500 mg Documented by: Ondansetron HCl (Zofran) 4 mg IV Q4H PRN PRN PRN Reason: Nausea Oxycodone HCl (Oxyir) 5 - 10 mg PO Q4H PRN PRN PRN Reason: Pain Score 4-10/10 Senna/Docusate Sodium (Senokot-S, Siria-Colace) 1 - 2 tablet PO DAILY PRN PRN PRN Reason: Constipation Last Admin: 09/28/19 04:12 Dose: 2 tablet Documented by: Simethicone (Mylicon) 80 mg PO HS PRN PRN Reason: Indigestion/Stomach pain Sodium Chloride () 5 - 15 ml IV UD PRN PRN Reason: SALINE FLUSH Medical Necessity - Tobacco Use Smoking Status: Never smoker Assessment/Plan All Active Problems (Last Reviewed 09/21/19 @ 09:18 by Leisa Naranjo) History of hypertension (Acute) (Acute) Supervision of with history of infertility (Acute) False labor (Resolved) Genetic testing (Resolved) Irregular menses (Resolved) Nausea & vomiting (Resolved) Primary female infertility (Resolved) s/p PPD # 1 1. routine post delivery care 2. bottle feeding- support given 3. rh positive 4. rubella immune 5. BP controlled postdelivery
[2019-09-29 01:26] VITALS: BP 115/69; PULSE 71; RESP 16; TEMP 36.2
--- NOTE | 2019-09-29 08:05 | PCM.PN.OB ---
Subjective: Doing well, no complaints.Pain controlled. Denies CP, SOB, N,V. Ambulating well, tolerating po. Lochia moderate, bottle going well. - Physical Exam Vitals/I&O's: Vital Signs Temp Pulse Resp BP Pulse Ox 97.2 F L 71 16 115/69 98 09/29/19 01:26 09/29/19 01:26 09/29/19 01:26 09/29/19 01:26 09/28/19 19:35 Oxygen Delivery Method Room Air Weight: 212 lb Body Mass Index (BMI) 34.2 Intake and Output for Last 24 Hours 09/27/19 09/28/19 09/29/19 23:59 23:59 23:59 Intake Total / Output Total 2400 / 2400 Balance -383.83 / -383.83 General: Alert, Oriented x3 Abdomen: Soft, Non Tender, Non-Distended, - - FF below U Current Medications Acetaminophen (Tylenol) 1,000 mg PO Q8H PRN PRN PRN Reason: Pain Score 1-3/10 Bisacodyl (Dulcolax) 10 mg RECTAL UD PRN PRN Reason: If no BM Dibucaine (Dibucaine) 1 applic TOPICAL TID PRN PRN; Protocol PRN Reason: Discomfort Hydrocortisone (Hytone) 1 applic TOPICAL TID PRN PRN; Protocol PRN Reason: Discomfort Naproxen (Naprosyn) 500 mg PO Q8H PRN PRN PRN Reason: Pain Score 1-3/10 Last Admin: 09/28/19 19:34 Dose: 500 mg Documented by: Ondansetron HCl (Zofran) 4 mg IV Q4H PRN PRN PRN Reason: Nausea Oxycodone HCl (Oxyir) 5 - 10 mg PO Q4H PRN PRN PRN Reason: Pain Score 4-10/10 Senna/Docusate Sodium (Senokot-S, Siria-Colace) 1 - 2 tablet PO DAILY PRN PRN PRN Reason: Constipation Last Admin: 09/28/19 04:12 Dose: 2 tablet Documented by: Simethicone (Mylicon) 80 mg PO PCHS PRN PRN Reason: Indigestion/Stomach pain Sodium Chloride () 5 - 15 ml IV UD PRN PRN Reason: SALINE FLUSH Medical Necessity - Tobacco Use Smoking Status: Never smoker Assessment/Plan All Active Problems (Last Reviewed 09/21/19 @ 09:18 by Leisa Naranjo) History of hypertension (Acute) (Acute) Supervision of with history of infertility (Acute) False labor (Resolved) Genetic testing (Resolved) Irregular menses (Resolved) Nausea & vomiting (Resolved) Primary female infertility (Resolved) s/p PPD # 2 1. routine post delivery care 2. bottle- support given 3. rh positive 4. rubella immune 5. home today
[2019-09-29 08:06] VITALS: BP 116/69; PULSE 67; RESP 16; TEMP 36.7; O2SAT 100
--- NOTE | 2019-09-29 08:08 | DCINST_ITS ---
Additional Instructions: If you experience any of the following, contact your healthcare provider. * Bleeding that soaks a pad every hour for 2 hours * Fever 100.4 or higher * Unrelieved incision or abdominal pain * Swelling, redness, discharge or bleeding from your incision or episiotomy site * Your incision begins to separate * Problems urinating (including inability to urinate or burning while urinating). * Visual changes * Severe headache * Flu-like symptoms * Pain or redness in one of both of your breasts * Pain, warmth, tenderness or swelling in your legs, especially the calf area * Frequent nausea and vomiting * Symptoms of depression or anxiety If you experience any of the following, call 911 or go to the nearest Emergency Room. * Chest pain * Problems breathing * Seizure activity * Partial or complete paralysis of a body part, slurred speech, weakness or drooping of the face, or a sudden inability to walk or hold your balance Allergies/Adverse Reactions: Allergies No Known Allergies Allergy (Verified 09/26/19 08:01) Medications to take at Discharge vitamin#30 30 mg iron-10 mg iron-folic acid 1 mg-omg3 capsule 1 cap PO DAILY cap 04/27/19 ondansetron 4 mg disintegrating tablet 4 mg PO Q4H PRN #60 tab 09/13/19 Primary Care Physician: Romaine Templeton MD [Primary Care Provider] - Test Results: Test results from this visit will be discussed in further detail at your follow- up appointment, if applicable.
--- NOTE | 2019-09-29 08:08 | PCM.DCVAG ---
Additional Instructions: If you experience any of the following, contact your healthcare provider. Bleeding that soaks a pad every hour for 2 hours Fever 100.4 or higher Unrelieved incision or abdominal pain Swelling, redness, discharge or bleeding from your incision or episiotomy site Your incision begins to separate Problems urinating (including inability to urinate or burning while urinating). Visual changes Severe headache Flu-like symptoms Pain or redness in one of both of your breasts Pain, warmth, tenderness or swelling in your legs, especially the calf area Frequent nausea and vomiting Symptoms of depression or anxiety If you experience any of the following, call 911 or go to the nearest Emergency Room. Chest pain Problems breathing Seizure activity Partial or complete paralysis of a body part, slurred speech, weakness or drooping of the face, or a sudden inability to walk or hold your balance Allergies/Adverse Reactions: Allergies No Known Allergies Allergy (Verified 09/26/19 08:01) Medications to take at Discharge vitamin#30 30 mg iron-10 mg iron-folic acid 1 mg-omg3 capsule 1 cap PO DAILY cap 04/27/19 ondansetron 4 mg disintegrating tablet 4 mg PO Q4H PRN #60 tab 09/13/19 Primary Care Physician: Romaine Templeton MD [Primary Care Provider] - Test Results: Test results from this visit will be discussed in further detail at your follow-up appointment, if applicable.
[2019-09-29] MEDS: Naproxen 250 MG Tablet 500 MG PO (08:15)
== END 2019-09-29 09:59 | disposition home or self-care (01) | DRG 807 ==
LOC: WPOUT 12:22 → WP 12:22
PROVIDERS: Admitting Provider Obstetrics & Gynecology; PCP Family Medicine; Referring Provider Obstetrics & Gynecology; Visit Provider Obstetrics & Gynecology
DX: O10.92 Unspecified pre-existing hypertension complicating childbirth (principal); O70.1 Second degree perineal laceration during delivery; Z37.0 Single live birth; Z3A.38 38 weeks gestation of pregnancy
CPT/HCPCS: 59025; 59050; 82565; 82570; 84156; 84450; 84460; 84550; 85027; 85610; 85730; 86850; 86900; 86901; 99218; J7120; G0378

== ENCOUNTER → 2021-05-08 13:07 | Outpatient (CLI) | payer OTHER, SELFPAY ==
[2021-05-10 16:27] LABS: HPV Reflexed? NOT INDICATED
== END ==
PROVIDERS: PCP Family Medicine; Visit Provider Obstetrics & Gynecology
DX: Z12.4 Encounter for screening for malignant neoplasm of cervix (principal)
CPT/HCPCS: 88175; G0145

== ENCOUNTER → 2023-09-16 | Outpatient (CLI) | payer OTHER, SELFPAY ==
--- OUTSIDE RECORDS SUMMARY | 2023-09-16 14:25 | XMS RPT_ITS | CCD ---
Author Name Unknown Address [address] [facility] [address] [place] [id number] Organization [facility] Care Team Providers Care Manager Fast Food Name Role Phone EMPLOYEE, HEALTH Admitting Unavailable EMPLOYEE, HEALTH Attending Unavailable EMPLOYEE, HEALTH Primary Care Unavailable HARSHA YOO Consulting Unavailable PROVIDER, UNKNOWN Consulting Unavailable PROVIDER, UNKNOWN Consulting Unavailable PROVIDER, UNKNOWN Consulting Unavailable JOEL MCINTOSH MD Admitting Unavailab JOEL Alvarenga MD Attending Unavailab JOEL Alvarenga MD Primary Care Unavailab HARSHA Umana Consulting Unavailable PROVIDER, UNKNOWN Consulting Unavailable PROVIDER, UNKNOWN Consulting Unavailable PROVIDER, UNKNOWN Consulting Unavailable KAILYN PITTS Attending Unavailable HARSHA YOO. Primary Care Unavailable AQUILES VALADEZ Consulting Unavailabl e Problems Problem Classification Problem Date Documented Da te Episodic/Chronic Menstrual disorders (3 sources) Irregular menstruation, unspecified; Translations: [Irregular menstruation, unspecified] Onset: 05-02-2018 Chronic Results Test Name Value Interpretation Reference Range Facil ity Encounters Encounter Date Encounter Type Care Provider Facility Start: 12-03-2018 End: 12-03-2018 Patient encounter procedure KAILYN PITTS Facility:A Start: 05-02-2018 End: 05-02-2018 Patient encounter procedure JOEL MCINTOSH [facility] Start: 01-25-2018 End: 01-26-2018 Patient encounter procedure HEALTH EMPLOYEE [facility] Payers Date Payer Category Payer Unknown [id number] 1990 Unknown [id number] 1990 Unknown [id number] Summary Purpose Family History No Family History Records FoundNo Family History Records FoundNo Family History Records FoundNo Family History Records Found Advance Directives No Advanced Directives Records FoundNo Advanced Directives Records FoundNo Advanced Directives Records FoundNo Advanced Directives Records Found Additional Source Comments INFORMATION SOURCE (unrecogn ized section and content) DATE CREATED AUTHOR AUTHOR'S ORGANIZ ATION 12/11/2018 [facility] ([place]) DATE CREATED AUTHOR AUTHOR'S ORGANIZ ATION 07/30/2019 [facility] DATE CREATED AUTHOR AUTHOR'S ORGANIZ ATION 08/06/2019 [facility] FOR RECORDS PERTAINING TO PATIENTS WHO ARE OR HAVE BEEN ENROLLED IN A CHEMICAL DEPENDENCY/SUBSTANCEABUSE PROGRAM, SOME INFORMATION MAY BE OMITTED. This clinical summary was aggregated from multiple sources. Caution should be exercised in using it in the provision of clinical care. This summary normalizes information from multiple sources, and as a consequence, information in this document may materially change the coding, format and clinical context of patient data. In addition, data may be omitted in some cases. CLINICAL DECISIONS SHOULD BE BASED ON THE PRIMARY CLINICAL RECORDS. [facility] [employer] [facility]. provides no warranty or guarantee of the accuracy or completeness of information in this document.
[2023-09-19 06:10] LABS: Chlamydia By Nucleic Acid AMP Negative (Negative); Gonococcus By Nucleic Acid AMP Negative (Negative)
[2023-09-21 12:08] LABS: HPV APTIMA, High Risk Negative (Negative)
== END | disposition home or self-care (01) ==
LOC: LABSPEC 13:48
PROVIDERS: PCP Family Medicine; Referring Provider Registered Nurse; Visit Provider Registered Nurse
DX: Z34.90 Encounter for supervision of normal pregnancy, unspecified, unspecified trimester (principal)
CPT/HCPCS: 87086; 87088; 87491; 87591; 87624; 88175; G0145

== ENCOUNTER → 2023-10-14 | Outpatient (CLI) | payer OTHER, SELFPAY ==
[2023-10-14 11:46] LABS: Absolute Lymphocyte Count 2.37 X10^3/uL (0.83-4.51); Absolute Neutrophil Count 10.8 X10^3/uL (2.0-7.7); Basophil# 0.07 X10^3/uL; Basophil% 0.5 % (0-1); Eosinophil# 0.19 X10^3/uL; Eosinophils% 1.3 % (0-5); Hemoglobin 14.3 g/dL (12.0-15.0); Lymphocyte # 2.37 X10^3/ul (0.83-4.51); Lymphocyte % 16.6 % (19-41); Mean Corpuscular Volume 90.9 fL (81-99); Mean Platelet Vol. 8.4 fl (6.2-12.0); Monocyte% 5.6 % (0-10); NRBC Flagged by Analyzer 0 % (0-5); Neutrophil % 75.6 % (47-70); Platelet Count 337 K/mm3 (150-450); RBC Distribution Width CV 12.5 % (11.6-14.6); RBC Distribution Width SD 40.8 fl (35.1-43.9); Red Blood Count 4.62 M/mm3 (4.2-5.4); White Blood Count 14.3 K/mm3 (4.4-11.0)
--- OUTSIDE RECORDS SUMMARY | 2023-10-14 11:53 | XMS RPT_ITS | CCD ---
Author Name Unknown Address [address] [facility] [address] [place] [id number] Organization [facility] Care Team Providers Care Stereotype Finisher Name Role Phone EMPLOYEE, HEALTH Admitting Unavailable [...] End: 05-02-2018 Patient encounter procedure JOEL MCINTOSH [facility] Start: 01-25-2018 End: 01-26-2018 Patient encounter procedure HEALTH EMPLOYEE [facility] Payers Date Payer Category Payer Unknown [id number] 1990 Unknown [id number] 1990 Unknown [id number] Summary Purpose Family History No Family History Records FoundNo Family History Records FoundNo Family History Records FoundNo Family History Records Found Advance Directives No Advanced Directives Records FoundNo Advanced Directives Records FoundNo Advanced Directives Records FoundNo Advanced Directives Records Found Additional Source Comments INFORMATION SOURCE (unrecogn ized section and content) DATE CREATED AUTHOR AUTHOR'S ORGANIZ ATION 12/11/2018 [facility] ([place]) DATE CREATED AUTHOR AUTHOR'S ORGANIZ ATION 07/30/2019 [facility] DATE CREATED AUTHOR AUTHOR'S ORGANIZ ATION 08/06/2019 [facility] FOR RECORDS PERTAINING TO PATIENTS WHO ARE [...] BE BASED ON THE PRIMARY CLINICAL RECORDS. [facility] [employer] [facility]. provides no warranty or guarantee of the accuracy or completeness of information in this document.
[2023-10-14 12:18] LABS: AST(SGOT) 17 U/L (15-37); Alanine Aminotransfer ALT/SGPT 33 U/L (13-56); Albumin, Serum 3.8 g/dL (3.2-5.0); Alkaline Phosphatase 143 U/L (45-117); Anion Gap 5 (5-15); BUN 19 mg/dL (7-18); BUN/Creat Ratio 33.2 RATIO (10-20); Calcium,Total 8.5 mg/dL (8.5-10.1); Chloride 108 mmol/L (98-107); Creatinine, Serum 0.57 mg/dL (0.55-1.02); EST Glomerular Filtration Rate 130 mL/min (>60); Est Glom Filt Rate - Afr Amer 158 mL/min (>60); Globulin 3.8 g/dL (2.2-4.2); Glucose 91 mg/dL (74-106); Potassium 3.7 mmol/L (3.5-5.1); Protein, Total 7.6 g/dL (6.4-8.2); Sodium Level 138 mmol/L (136-145)
[2023-10-14 12:57] LABS: HIV - WCH Non-Reactive (Nonreactive); Hepatitis B Surface Antigen Non-Reactive (Nonreactive); Hepatitis C Antibody Non-Reactive (Nonreactive); Rubella IgG Reactive (Nonreactive); Syphilis Antibodies Non-reactive
== END | disposition home or self-care (01) ==
LOC: PAVLAB 11:16
PROVIDERS: PCP Family Medicine; Referring Provider Registered Nurse; Visit Provider Registered Nurse
DX: Z34.81 Encounter for supervision of other normal pregnancy, first trimester (principal)
CPT/HCPCS: 36415; 80053; 85025; 86703; 86762; 86780; 86803; 86850; 86900; 86901; 87340

== ENCOUNTER → 2024-01-05 | Outpatient (CLI) | payer OTHER, SELFPAY ==
[2024-01-05 10:56] LABS: Absolute Lymphocyte Count 1.71 X10^3/uL (0.83-4.51); Absolute Neutrophil Count 9.3 X10^3/uL (2.0-7.7); Basophil# 0.03 X10^3/uL; Basophil% 0.3 % (0-1); Eosinophil# 0.14 X10^3/uL; Eosinophils% 1.2 % (0-5); Hematocrit 37.9 % (37-47); Hemoglobin 13.2 g/dL (12.0-15.0); Lymphocyte # 1.71 X10^3/ul (0.83-4.51); Lymphocyte % 14.3 % (19-41); Mean Corp Hgb Conc 34.8 g/dL (32-36); Mean Corpuscular Hgb 32.4 pg (27.0-32.0); Mean Corpuscular Volume 92.9 fL (81-99); Mean Platelet Vol. 8.2 fl (6.2-12.0); Monocyte# 0.75 X10^3/uL; Monocyte% 6.3 % (0-10); NRBC Flagged by Analyzer 0 % (0-5); Neutrophil # 9.26 X10^3/uL (2.7-7.7); Neutrophil % 77.4 % (47-70); Platelet Count 288 K/mm3 (150-450); RBC Distribution Width CV 12.7 % (11.6-14.6); RBC Distribution Width SD 43.1 fl (35.1-43.9); Red Blood Count 4.08 M/mm3 (4.2-5.4)
[2024-01-05 11:22] LABS: ALB/GLOB Ratio 0.9 RATIO (0.9-2.4); AST(SGOT) 20 U/L (15-37); Alanine Aminotransfer ALT/SGPT 30 U/L (13-56); Albumin, Serum 3.2 g/dL (3.2-5.0); Alkaline Phosphatase 114 U/L (45-117); Anion Gap 3 (5-15); BUN 15 mg/dL (7-18); BUN/Creat Ratio 33.1 RATIO (10-20); Calcium,Total 8.5 mg/dL (8.5-10.1); Chloride 109 mmol/L (98-107); Creatinine, Serum 0.45 mg/dL (0.55-1.02); EST Glomerular Filtration Rate 170 mL/min (>60); Est Glom Filt Rate - Afr Amer 206 mL/min (>60); Globulin 3.7 g/dL (2.2-4.2); Glucose 98 mg/dL (74-106); Potassium 3.9 mmol/L (3.5-5.1); Protein, Total 6.9 g/dL (6.4-8.2); Sodium Level 137 mmol/L (136-145)
[2024-01-05 11:29] LABS: Protein, Urine (Random) 11.2 mg/dL (<11.9); Protein:Creat Ratio 380 mg/g CRE (0-200)
== END | disposition home or self-care (01) ==
LOC: PAVLAB 10:35
PROVIDERS: PCP Family Medicine; Referring Provider Advanced Practice Midwife; Visit Provider Advanced Practice Midwife
DX: O16.9 Unspecified maternal hypertension, unspecified trimester (principal); Z3A.00 Weeks of gestation of pregnancy not specified
CPT/HCPCS: 36415; 80053; 82570; 84156; 85025

== ENCOUNTER → 2024-01-08 | Outpatient (CLI) | payer OTHER, SELFPAY ==
[2024-01-08 08:53] LABS: Absolute Lymphocyte Count 1.49 X10^3/uL (0.83-4.51); Absolute Neutrophil Count 8.6 X10^3/uL (2.0-7.7); Basophil# 0.03 X10^3/uL; Basophil% 0.3 % (0-1); Eosinophils% 0.9 % (0-5); Hemoglobin 13.8 g/dL (12.0-15.0); Lymphocyte # 1.49 X10^3/ul (0.83-4.51); Lymphocyte % 13.7 % (19-41); Mean Corp Hgb Conc 35.4 g/dL (32-36); Mean Corpuscular Volume 93.3 fL (81-99); Mean Platelet Vol. 8.3 fl (6.2-12.0); Monocyte# 0.66 X10^3/uL; NRBC Flagged by Analyzer 0 % (0-5); Neutrophil # 8.58 X10^3/uL (2.7-7.7); Neutrophil % 78.6 % (47-70); Platelet Count 286 K/mm3 (150-450); RBC Distribution Width CV 12.8 % (11.6-14.6); RBC Distribution Width SD 43.3 fl (35.1-43.9); Red Blood Count 4.18 M/mm3 (4.2-5.4); White Blood Count 10.9 K/mm3 (4.4-11.0)
[2024-01-08 09:42] LABS: Creatinine, Urine (random) < 13.00 mg/dL (NO RANGE EST.); Protein, Urine (Random) < 6.0 mg/dL (<11.9)
== END | disposition home or self-care (01) ==
LOC: LAB 08:24
PROVIDERS: PCP Family Medicine; Referring Provider Obstetrics & Gynecology; Visit Provider Obstetrics & Gynecology
DX: O12.10 Gestational proteinuria, unspecified trimester (principal); O09.92 Supervision of high risk pregnancy, unspecified, second trimester; Z3A.00 Weeks of gestation of pregnancy not specified
CPT/HCPCS: 36415; 82570; 84156; 85025

== ENCOUNTER → 2024-01-19 | Outpatient (CLI) | payer OTHER, SELFPAY ==
[2024-01-19 14:09] LABS: Glucose Challenge Gest 1H 50g 123 mg/dL (70-140)
[2024-01-19 15:18] LABS: Absolute Lymphocyte Count 1.87 X10^3/uL (0.83-4.51); Absolute Neutrophil Count 7.4 X10^3/uL (2.0-7.7); Basophil# 0.04 X10^3/uL; Basophil% 0.4 % (0-1); Eosinophil# 0.11 X10^3/uL; Eosinophils% 1.1 % (0-5); Hematocrit 37.5 % (37-47); Lymphocyte # 1.87 X10^3/ul (0.83-4.51); Lymphocyte % 18.2 % (19-41); Mean Corp Hgb Conc 34.7 g/dL (32-36); Mean Corpuscular Hgb 32.1 pg (27.0-32.0); Mean Corpuscular Volume 92.6 fL (81-99); Mean Platelet Vol. 8.2 fl (6.2-12.0); Monocyte% 7.8 % (0-10); NRBC Flagged by Analyzer 0 % (0-5); Neutrophil # 7.42 X10^3/uL (2.7-7.7); Neutrophil % 72.1 % (47-70); Platelet Count 285 K/mm3 (150-450); RBC Distribution Width CV 12.8 % (11.6-14.6); Red Blood Count 4.05 M/mm3 (4.2-5.4); White Blood Count 10.3 K/mm3 (4.4-11.0)
[2024-01-19 16:00] LABS: ALB/GLOB Ratio 0.9 RATIO (0.9-2.4); AST(SGOT) 20 U/L (15-37); Alanine Aminotransfer ALT/SGPT 27 U/L (13-56); Albumin, Serum 3.1 g/dL (3.2-5.0); Alkaline Phosphatase 127 U/L (45-117); Anion Gap 7 (5-15); BUN 12 mg/dL (7-18); BUN/Creat Ratio 16.8 RATIO (10-20); Chloride 107 mmol/L (98-107); Creatinine, Serum 0.71 mg/dL (0.55-1.02); EST Glomerular Filtration Rate 101 mL/min (>60); Est Glom Filt Rate - Afr Amer 122 mL/min (>60); Globulin 3.6 g/dL (2.2-4.2); Glucose 87 mg/dL (74-106); Potassium 3.8 mmol/L (3.5-5.1); Protein, Total 6.7 g/dL (6.4-8.2); Sodium Level 136 mmol/L (136-145)
[2024-01-19 16:39] LABS: HIV - WCH Non-Reactive (Nonreactive); Syphilis Antibodies Non-reactive
== END | disposition home or self-care (01) ==
PROVIDERS: Obstetrics & Gynecology; PCP Family Medicine; Referring Provider Advanced Practice Midwife; Visit Provider Advanced Practice Midwife
DX: Z34.90 Encounter for supervision of normal pregnancy, unspecified, unspecified trimester (principal)
CPT/HCPCS: 36415; 80053; 82950; 85025; 86703; 86780

== ENCOUNTER → 2024-02-03 | Outpatient (CLI) | payer OTHER, SELFPAY ==
--- NOTE | 2024-02-03 13:19 | US_ITS ---
STUDY: SECOND AND THIRD TRIMESTER OBSTETRICAL ULTRASOUND - LIMITED REASON FOR EXAM: Female, 33 years old placenta follow-up for low lying LMP: July 18, 2023. PRIOR ULTRASOUND: None. TECHNIQUE: Transabdominal TECHNICAL QUALITY: Adequate. FINDINGS: There is a single intrauterine fetus. The fetus is in a cephalic presentation. There is demonstrated cardiac activity with a heart rate of 148 bpm. There is a normal amniotic fluid volume. The largest amniotic fluid pocket measures 5.6 x 2 x 7 cm. The amniotic fluid index (RG) is within normal limits. The placenta is posterior in location and is not low lying. The tip of the placenta is at 6.5 cm from the cervical os. There are Grade 0 placental changes. The cervix measures 3.6 cm in length. BIOMETRY: BPD: 7.42 cm: 29 weeks, 5 days HC: 27.66 cm: 30 weeks, 2 days AC: 25.01 cm: 29 weeks, 2 days FL: 5.52 cm: 29 weeks, 1 days Age by LMP: 28 weeks, 4 days. ALICE by LMP: April 23, 2024. age by current US: 29 weeks, 5 days. ALICE by current US: April 15, 2024. Estimated weight: 1377 grams, +/- 207 grams, 66 percentile. US/OB Limited With Biometrics IMPRESSION: Single live intrauterine gestation with mean gestational age of 29 weeks 5 Electronically Signed: Jairo Brown MD at 15:19 EDT ,
== END | disposition home or self-care (01) ==
PROVIDERS: PCP Family Medicine; Referring Provider Advanced Practice Midwife; Visit Provider Advanced Practice Midwife
DX: O44.40 Low lying placenta NOS or without hemorrhage, unspecified trimester (principal); Z3A.00 Weeks of gestation of pregnancy not specified
CPT/HCPCS: 76816

== ENCOUNTER → 2024-03-30 | Outpatient (CLI) | payer OTHER, SELFPAY ==
--- NOTE | 2024-03-30 12:12 | US_ITS ---
INDICATION: growth -- 36 wk COMPARISON: 02/03/2024 OB ultrasound. FINDINGS: 51 grayscale ultrasound images demonstrate single live intrauterine in cephalic presentation measuring at 39 weeks +5 days average ultrasound age. Estimated weight 3920 g, greater than 99th percentile. heart rate 144 bpm. Adequate amniotic fluid volume of multiple large pockets visualized, RG 18 cm. Deepest vertical pocket 5.6 cm. Posterior placenta is unremarkable for gestational age containing few venous lakes. Uterine myometrium is unremarkable. Uterine cervix is long and closed measuring at least 4.5 cm in length. Fluid-filled gastric lumen. Bilateral ovaries are not visualized. No significant free fluid. US/OB Limited With Biometrics IMPRESSION: Single live intrauterine in cephalic presentation measuring at 39 weeks +5 days average ultrasound age. Estimated weight 3920 g, greater than 99th percentile. Electronically Signed: Joao Azevedo MD at 1:51 EDT ,
== END | disposition home or self-care (01) ==
PROVIDERS: PCP Family Medicine; Referring Provider Obstetrics & Gynecology; Visit Provider Obstetrics & Gynecology
DX: O09.92 Supervision of high risk pregnancy, unspecified, second trimester (principal); Z3A.00 Weeks of gestation of pregnancy not specified
CPT/HCPCS: 76816; 87081

== ENCOUNTER → 2024-03-31 | Outpatient (CLI) | payer OTHER, SELFPAY ==
[2024-03-31 13:26] LABS: Glucose Challenge Gest 1H 50g 139 mg/dL (70-140)
== END | disposition home or self-care (01) ==
LOC: LAB 11:40
PROVIDERS: PCP Family Medicine; Referring Provider Obstetrics & Gynecology; Visit Provider Obstetrics & Gynecology
DX: O09.93 Supervision of high risk pregnancy, unspecified, third trimester (principal); O36.60X0 Maternal care for excessive fetal growth, unspecified trimester, not applicable or unspecified; Z3A.00 Weeks of gestation of pregnancy not specified
CPT/HCPCS: 36415; 82950

== ENCOUNTER → 2024-04-05 | Outpatient (CLI) | payer OTHER, SELFPAY ==
[2024-04-05 11:15] LABS: Glucose GTT-Gestation. Fasting 74 mg/dL (<105)
[2024-04-05 11:18] LABS: Bedside Glucose 63 mg/dL (74-106)
[2024-04-05 12:24] LABS: Glucose GTT-Gestational 1 Hr 161 mg/dL (<190)
[2024-04-05 13:37] LABS: Glucose GTT-Gestational 2 Hr 159 mg/dL (<165)
[2024-04-05 14:39] LABS: Glucose GTT-Gestational 3 Hr 80 L (<145)
== END | disposition home or self-care (01) ==
LOC: LAB 10:04
PROVIDERS: PCP Family Medicine; Referring Provider Obstetrics & Gynecology; Visit Provider Obstetrics & Gynecology
DX: O99.810 Abnormal glucose complicating pregnancy (principal); Z3A.00 Weeks of gestation of pregnancy not specified
CPT/HCPCS: 82951; 82952; 82962

== ENCOUNTER 2024-04-06 10:55 | Inpatient (IN) | payer OTHER, SELFPAY ==
[2024-04-06] VITALS (52 sets, daily range): BP systolic 98–156; BP diastolic 56–98; PULSE 76–139; RESP 16–18; TEMP 36.6–37.6; O2SAT 98–100; BMI 32.5
[2024-04-06] MEDS: Lactated Ringers 1,000 ML 200 ML IV ×2 (11:35→13:48)
[2024-04-06 11:55] LABS: Absolute Lymphocyte Count 1.87 X10^3/uL (0.83-4.51); Absolute Neutrophil Count 11.5 X10^3/uL (2.0-7.7); Basophil# 0.05 X10^3/uL; Basophil% 0.3 % (0-1); Eosinophil# 0.15 X10^3/uL; Hemoglobin 13.2 g/dL (12.0-15.0); Lymphocyte # 1.87 X10^3/ul (0.83-4.51); Lymphocyte % 12.7 % (19-41); Mean Corp Hgb Conc 33.8 g/dL (32-36); Mean Corpuscular Hgb 29.7 pg (27.0-32.0); Mean Corpuscular Volume 87.6 fL (81-99); Monocyte% 7.5 % (0-10); NRBC Flagged by Analyzer 0 % (0-5); Neutrophil # 11.49 X10^3/uL (2.7-7.7); Neutrophil % 77.9 % (47-70); Platelet Count 284 K/mm3 (150-450); RBC Distribution Width CV 11.9 % (11.6-14.6); RBC Distribution Width SD 38.2 fl (35.1-43.9); Red Blood Count 4.45 M/mm3 (4.2-5.4); White Blood Count 14.8 K/mm3 (4.4-11.0)
[2024-04-06 12:03] LABS: AST(SGOT) 19 U/L (15-37); Alanine Aminotransfer ALT/SGPT 14 U/L (13-56); Creatinine, Serum 0.52 mg/dL (0.55-1.02); EST Glomerular Filtration Rate 144 mL/min (>60); Est Glom Filt Rate - Afr Amer 175 mL/min (>60)
[2024-04-06 12:05] LABS: Creatinine, Urine (random) < 13.00 mg/dL (NO RANGE EST.); Protein, Urine (Random) < 6.0 mg/dL (<11.9)
[2024-04-06 12:23] LABS: Syphilis Antibodies Non-reactive
--- NOTE | 2024-04-06 12:44 | HP.PCM.OB_ITS ---
HPI - General General Date of Admission: 04/06/24 HPI Narrative GRAHAM HOLT, is a 33 y/o @ 37 weeks 4 days who presents to L&D for active labor management. She was seen in the office yesterday and membranes were swept. She was 4 cm at the time and today when she presents, the nurse who examined her called her cervix 5 cm dilated. She is talib irregularly but her pressures are also elevated in the 130's-140's/ 90's. She denies headaches, visual changes, or epigastric pain. Her only complaint is moderate back pain with contractions. she states that she had back labor with her last delivery also. recent ultrasound shows that the baby is LGA. The EFW on 03/30 was 3900 grams. Her has been complicated with chronic hypertension. She has been taking an 81mg dose of asa daily. Maternal Data Information ALICE Calculator Estimated Delivery Date Method Current WG Current Estimate 04/23/24 LMP (Certain) 37w 4d Other Estimates 05/09/24 Ultrasound #1 35w 2d 04/26/24 Ultrasound #2 37w 1d PFSH PFSH Medical History (Updated 04/06/24 @ 11:32 by Kayla Fox) Chronic hypertension Low-lying placenta Hx of infertility Seasonal allergies Amenorrhea, secondary History of endometriosis Home Medications ?Medication ?Instructions ?Recorded ?Last Taken ?Type aspirin 81 mg capsule 81 mg PO DAILY 09/11/23 04/06/24 History multivit-min no.71-iron fum 28 cap PO 09/11/23 04/06/24 History mg-folate no.1 1 mg-dha 300 mg capsule ([facility]) Allergy/AdvReac Type Severity Reaction Status Date / Time No Known Allergies Allergy Verified 04/06/24 11:12 Family History Mother Hypertension Grandmother Hypertension Diabetes Uterine cancer, Onset Age: 72 Grandfather Hypertension Diabetes Surgical History H/O adenoidectomy S/P tonsillectomy Social History adopted: No household members: spouse and children number of children: 1 current occupational status: employed current occupation: [employer] current occupational exposures/hazards: No pets and animals: No history of recent travel: No sexually active: Yes Smoking Status: Never smoker alcohol intake: current alcohol intake frequency: holidays/special occasions only details: occasionally- not while substance use type: does not use well-balanced diet: daily or most days caffeine: Yes Type: coffee Number of servings: 1 eating out: rarely or never during the past year weight has: remained stable what type of physical activity do you participate in: walking frequency: 5-6 times per week duration: 30-45 minutes/day cindy/yazidi: Scientologist seatbelt use: always do you feel safe at home: Yes additional social history: - 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 Date Name GA/Weeks Outcome Route Bth Weight [facility] Michelle 38 live - full term Female epidu [facility] Delivery Date: 09/27/19 Last Updated by: Pallavi Barajas IoL CHTN Visit Details Expected Delivery Route/Plan Labor Preferences- CB/BF classes: [] labor support person: [] labor intervention preferences: [] pain management options preferred: epidural cut cord/dad catch: [] : [] PP control planned: [] discussed possible routes of delivery and associated risks: [] special requests: [] Plans Covid status: [] Flu vaccine: [] Tdap vaccine: 02/16 Rhogam: na LARC form signed: declined movement and labor precautions reviewed. Problem list reviewed and updated with the most current plan of care details and appropriate orders placed. Relevant counseling for the gestational age provided. Continue routine care and follow up unless otherwise noted in visit notes/problem list details OB Flowsheet Initial Weight: 158 lb Date -?-?-?-?-?-?-?-?-?-?-?-?- EGA Weight BP Urine Prot -?-?-?-?-?-?-?-?-?-?-?-?- Glucose FHR FuHt Pres Dilation -?-?-?-?-?-?-?-?-?-?-?-?- Effaced St Visit Note 09/16/23 -?-?-?-?-?-?-?-?-?-?-?-?- 8w 4d 158 lb 2 oz (+2 oz) 127/76 -?-?-?-?-?-?-?-?-?-?-?-?- 144 -?-?-?-?-?-?-?-?-?-?-?-?- LC- CRL not con with LMP. 6w2d. ALICE changed. LC- CRL not con with LMP. 6w 2d. ALICE changed. desires nipt. PEc baseline labs with nob. LC- CRL not con with LMP. 6w 2d. ALICE changed. desires nipt. PEC baseline labs with nob. 10/14/23 -?-?-?-?-?-?-?-?-?-?-?-?- 12w 4d 163 lb 8 oz (+5 lb 8 oz) 149/85 Negative -?-?-?-?-?-?-?-?-?-?-?-?- Negative 164 -?-?-?-?-?-?-?-?-?-?-?-?- JV- CRL is now c onsistent with LMP. moving due date back LMP alice. JV- CRL is now consistent wi th LMP. moving due date back LMP alice. NIPT ordered for today. rpt bp 136/88. 11/11/23 -?-?-?-?-?-?-?-?-?-?-?-?- 16w 4d 174 lb 2 oz (+16 lb 2 oz) 147/81 129/82 Negative -?-?-?-?-?-?-?-?-?-?-?-?- Negative 156 -?-?-?-?-?-?-?-?-?-?-?-?- LC- no vb/crampi ng. no concerns. declines afp. 12/09/23 -?-?-?-?-?-?-?-?-?-?-?-?- 20w 4d 183 lb (+25 lb) 124/72 Negative -?-?-?-?-?-?-?-?-?-?-?-?- Negative 148 -?-?-?-?-?-?-?-?-?-?-?-?- MH-NO VB, LOF. F eeling movement. Had US prior to this appt 01/05/24 -?-?-?-?-?-?-?-?-?-?-?-?- 24w 3d 194 lb 6 oz (+36 lb 6 oz) 141/93 Negative -?-?-?-?-?-?-?-?-?-?-?-?- Negative 150 26 -?-?-?-?-?-?-?-?-?-?-?-?- KW- no vb/lof/cr amping. good fm. 28 week labs ordered. BPs normal at home 01/19/24 -?-?-?-?-?-?-?-?-?-?-?-?- 26w 3d 194 lb (+36 lb) 138/75 -?-?-?-?-?-?-?-?-?-?-?-?- 145 27 -?-?-?-?-?-?-?-?-?-?-?-?- SM- normal bps a t home, cuff validated. no vb lof good fm no regular ctx 02/17/24 -?-?-?-?--?-?-?-?-?-?-?-?- 30w 4d 201 lb (+43 lb) 119/82 -?-?-?-?-?-?-?-?-?-?-?-?- 140 32 -?-?-?-?-?-?-?-?-?-?-?-?- SM- no vb lof go od fm nor egular ctx bps WNL at home 03/01/24 -?-?-?-?-?-?-?-?-?-?-?-?- 32w 3d 203 lb 4 oz (+45 lb 4 oz) 122/70 Negative -?-?-?-?-?--?-?-?-?-?-?-?- Negative 140 33 -?-?-?-?-?-?-?-?-?-?-?-?- MH-reactive NST. Denies VB, LOF. Good Fm. 03/09/24 -?-?-?-?-?-?-?-?-?-?-?-?- 33w 4d 204 lb 8 oz (+46 lb 8 oz) 127/85 Negative -?-?-?-?-?-?-?-?-?-?-?-?- Negative 140 -?-?-?-?-?-?-?-?-?-?-?-?- MH NST only reac tive 03/16/24 -?-?-?-?-?-?-?-?-?-?-?-?- 34w 4d 205 lb (+47 lb) 129/80 -?-?-?-?-?-?-?-?-?-?-?-?- 140 -?--?-?-?-?-?-?-?-?-?-?-?- SM- no vb crampi ng lof good fm bps WNL 03/22/24 -?-?-?-?-?-?-?-?-?-?-?-?- 35w 3d 206 lb (+48 lb) 124/79 Negative -?-?-?-?-?-?-?-?-?-?-?-?- Negative 130 -?-?-?-?-?-?-?-?-?-?-?-?- MH-NST only reac tive 03/30/24 -?-?-?-?-?-?-?-?-?-?-?-?- 36w 4d 208 lb 2 oz (+50 lb 2 oz) 137/84 Negative -?-?-?-?-?-?-?-?-?-?-?-?- Negative 140 38 Cephalic 2 -?-?-?-?-?-?-?-?-?-?-?-?- 50 -3 MH-Reactiv e NST. No VB, LOF. Good Fm. GBS collected ROS Constitutional Constitutional: Denies change in weight, fatigue, fever(s), headache(s), poor appetite or weakness Eyes Eyes: Denies blurry vision, change in vision, seeing flashes or spots in vision ENT HEENT: Denies dizziness, headache(s), loss taste/smell or sore throat Cardiovascular Cardiovascular: Denies chest pain, dizziness, dyspnea, irregular heart rhythm, leg edema, palpitations, rapid heart rate or vomiting Respiratory/Chest Respiratory/Chest: Denies chest tightness, cough, dyspnea or breast pain Gastrointestinal Gastrointestinal: Denies abdominal pain, anorexia, constipation, cramping, david rrhea, hemorrhoids, vomiting or weight changes Genitourinary Genitourinary: Denies dysuria, flank pain, genital lesions, genital pain, urinary frequency or urinary urgency Musculoskeletal Musculoskeletal: Denies back pain, difficulty walking, joint pain, limited range of motion, muscle cramps or numbness Integumentary Integumentary: Denies lesions or unusual bruising Neurologic Neurologic: Denies abnormal movements, abnormal speech, dizziness, numbness, seizure-like activity or syncope Psychiatric Psychiatric: Denies anxiety, behavioral changes, change in appetite, change in libido, cognitive impairment, confusion, depression, difficulty concentrating, hallucinations or suicidal thoughts Endocrine Endocrinology: Denies excessive sweating, polydipsia or polyuria Hematologic/Lymphatic Hematologic/Lymphatic: Denies easy bleeding, easy bruising or lymphadenopathy Allergic/Immunologic Allergic/Immunologic: Denies itchy eyes, lip swelling, seasonal rhinorrhea, rhinitis, throat swelling, tongue swelling, eczemia, wheezing or asthma Vital Signs Vital Signs Vital Signs: 04/06/24 10:22 04/06/24 10:22 04/06/24 10:22 Temperature Temperature Source Temporal Pulse Rate 113 H Respiratory Rate Blood Pressure 134/91 H BP Systolic 134 BP Diastolic 91 Pulse Ox 04/06/24 10:22 04/06/24 10:22 04/06/24 10:38 Temperature 98.9 F Temperature Source Pulse Rate Respiratory Rate 16 Blood Pressure 148/98 H BP Systolic 148 BP Diastolic 98 Pulse Ox 04/06/24 10:38 04/06/24 10:53 04/06/24 10:53 Temperature Temperature Source Pulse Rate 121 H 118 H Respiratory Rate Blood Pressure 142/83 H BP Systolic 142 BP Diastolic 83 Pulse Ox 04/06/24 11:08 04/06/24 11:08 08/14/24 11:38 Temperature Temperature Source Pulse Rate 107 H Respiratory Rate Blood Pressure 148/89 H 154/87 H BP Systolic 148 154 BP Diastolic 89 87 Pulse Ox 04/06/24 11:38 04/06/24 12:07 04/06/24 12:07 Temperature Temperature Source Pulse Rate 113 H 106 H Respiratory Rate Blood Pressure 126/79 H BP Systolic 126 BP Diastolic 79 Pulse Ox 04/06/24 12:42 04/06/24 12:42 Temperature Temperature Source Pulse Rate 106 H Respiratory Rate Blood Pressure BP Systolic BP Diastolic Pulse Ox 100 Weight Weight: 202 lb Body Mass Index (BMI) 32.5 Physical Exam Const alert, oriented x3, no apparent distress and healthy appearing General Appearance: cooperative; Negative for anxious HEENT normocephalic Face and Sinus: normal facial exam Eyes EOMs intact bilaterally and no scleral icterus General Eye: normal appearance of both eyes Neck full ROM and supple Lymph Lymphatic: no lymphadenopathy noted Chest Chest: abnormal inspection of the chest Resp normal respiratory effort Effort and Inspection: able to speak in complete sentences Cardio regular rate GI soft to palpation and non-tender Inspection: gravid Palpation: soft; Negative for tender external exam normal Amniotic Fluid: ROM+plus Back/Spine no CVA tenderness Extremity normal to inspection, full ROM and no clubbing, cyanosis or edema General Extremity: Negative for calf tenderness or edema Skin Lesions: no lesions Rashes: no rashes Psych mental status grossly normal Labs Labs Labs: Blood Type O POSITIVE Antibody Screen NEGATIVE Hct 39.0 % (37-47) Hgb 13.2 g/dL (12.0-15.0) Obstetrics Ultrasound Syphilis Total Ab Non-reactive Rubella IgG Antibody Reactive (Nonreactive) Hep Bs Antigen Non-Reactive (Nonreactive) Hepatitis C Antibody Non-Reactive (Nonreactive) Chlamydia DNA ([place]) Negative (Negative) N.gonorrhoeae DNA ([place]AS) Negative (Negative) HIV 1&2 Antibody Non-Reactive (Nonreactive) Glucose 1 Hr 50 gm 139 mg/dL (70-140) Gest Glucose Tolerance MG/DL Rhogam given: No Assessment & Plan (1) Large for gestational age fetus: COMMENT: 99%ile, needs repeat GCT, IOL already planned at 38 weeks due to HTN, EFW 3920 at 8/7 1 hr GCT elevated. 3 hr GTT normal previous infant over 7 lbs. (2) History of pre-eclampsia in prior , currently : COMMENT: baseline PEC labs. ASA 81mg PLAN: Repeat labs now (3) Supervision of high-risk : QUALIFIERS: Trimester: third trimester Qualified Code(s): O09.93 - Supervision of high risk , unspecified, third trimester COMMENT: [id number], ALICE 04/23/24, boy, PC Michelle Julio (4) : QUALIFIERS: Weeks of gestation: 37 weeks Qualified Code(s): Z3A.37 - 37 weeks gestation of COMMENT: Neg GBS. repeat anatomy nl,decline carrier testing, NIPT low risk, nl 1 hr glucose (5) COVID: COMMENT: asa 81mg daily (6) History of hypertension: COMMENT: baseline PEC labs reviewed bps at home, checking daily at home. nsts planned at 32 weeks. deliver at 38-39. growth q 4 weeks. on 81mg asa. PLAN: Plan Patient presents IAL, plan expectant management for , pitocin/AROM PRN if needed. Pain management: plans epidural. GBS negative . Management of any complications: see above I have reviewed the [facility] and made any clinically relevant updates.
[2024-04-06] MEDS: fentaNYL-bupivacaine (epidural) 100 ML BAG EPIDURAL ×2 (13:48→18:03)
[2024-04-06] MEDS: Oxytocin 15 Units/NS 250ml 15 UNITS/250 ML IV.SOLN 2 UNITS IV (14:46)
[2024-04-06] MEDS: Amnioinfusion- 0.9% NS 1,000 ML IV.SOLN. 1000 ML INTRA-UTER (16:30)
--- NOTE | 2024-04-06 17:10 | PCM.PN.BLA ---
Progress Note recurrent variable declerations noted on monitor IUPC placed by nurse and Amnioinfusion ordered and has been running for last 30 minutes. now a cat 1 without decels. cx 5-6/80/-2 per last nurse exam. recheck shows unchanged dilation and pitocin is off
--- NOTE | 2024-04-06 18:39 | PCM.PN.BLA ---
Progress Note pt is in hands/knees and kneeling in a large puddle of fluid from the amnioinfusion. current tracing: FHT: Moderate variability recurrent variable decelerations again noted [place]: q2 min Contractions IUPC is coming out and large amount of fluid from the amnioinfusion has escaped A/P: 200cc amnioinfusion bolus ordered due to a large amount of fluid that has started to escape and variables were getting worse. Immediately after amnioinfusion started the variables resolved.
--- NOTE | 2024-04-06 20:19 | EX.PCM.OBRPT ---
Assessment & Plan (1) Large for gestational age fetus: COMMENT: 99%ile, needs repeat GCT, IOL already planned at 38 weeks due to HTN, EFW 3920 at 03/30 1 hr GCT elevated. 3 hr GTT normal previous over 7 lbs. (2) History of pre-eclampsia in prior , currently : COMMENT: baseline PEC labs. ASA 81mg (3) Supervision of high-risk : QUALIFIERS: Trimester: third trimester Qualified Code(s): O09.93 - Supervision of high risk , unspecified, third trimester COMMENT: [id number], ALICE 04/23/24, boy, PC Michelle Julio (4) : QUALIFIERS: Weeks of gestation: 37 weeks Qualified Code(s): Z3A.37 - 37 weeks gestation of COMMENT: Neg GBS. repeat anatomy nl,decline carrier testing, NIPT low risk, nl 1 hr glucose (5) COVID: COMMENT: asa 81mg daily (6) History of hypertension: COMMENT: baseline PEC labs reviewed bps at home, checking daily at home. nsts planned at 32 weeks. deliver at 38-39. growth q 4 weeks. on 81mg asa. Maternal Data Information ALICE Calculator Estimated Delivery Date Method Current WG Current Estimate 04/23/24 LMP (Certain) 37w 4d Other Estimates 05/09/24 Ultrasound #1 35w 2d 04/26/24 Ultrasound #2 37w 1d Final ALICE: 04/23/24 Final ALICE Source: LMP Gestational age: 37 weeks 4 days [place] Doctor Who Attended Delivery: Kevin Polanco Vaginal Delivery Maternal Presentation Maternal Presentation: Active Labor Type of Induction: Pitocin and Amniotomy Operative Information Date of Procedure: 04/06/24 Pre-Operative Diagnosis: 33 y/o @ 37 weeks 4 days, active labor Post-Operative Diagnosis: 33 y/o @ 37 weeks 4 days, active labor Surgery / Procedure Performed: Spontaneous Vaginal Delivery Type of Anesthesia: Epidural Drain: Loera to straight drain Estimated Blood Loss: 300cc Time of Delivery: 19:54 Findings Description of Procedure: Patient began pushing and delivered the head in the JOHN presentation. The head was delivered atraumatically and a loose nuchal cord ?1 was identified and easily reduced over the infant's head. The anterior and posterior shoulders delivered without complication followed by the rest of the and the was placed on the maternal abdomen. Delayed cord clamping was employed for approximately 60 seconds. Cord was clamped and cut and gentle traction was applied to the cord and the placenta delivered spontaneously immediately following it was noted to be intact with three-vessel cord. The perineum and vagina were inspected and noted to have a 2nd degree perineal laceration, repaired with a 2-0 vicryl and a periurethral laceration repaired with a 3-0 vicryl rapide EBL was 300cc. Patient and infant tolerated delivery well. mook Peres required loss claim clerk and respiratory assistance after delivery for retractions and poor tone. Presentation: Vertex Amniotic Membrane Rupture Type: Artificial Time of Membrane Rupture: 1330 Amniotic Fluid Description: Clear Placental Delivery Description: Spontaneous Placenta Disposition: [facility] Cord Vessel Description: 3 Vessels Cord Entanglement: Around neck x 1, loose Nuchal Cord Compression: Without compression Infant A Gender: Male (1 minute): 7 (5 minute): 7 Delayed Cord Clamping: Yes Post Vaginal Delivery Medications Given After Delivery: IV Pitocin Laceration: Periurethral Extnsion/lac and 2nd degree Complication Complications: None Multi Select Codes Urinary/Genital Urinary/Genital CPT Codes: 44650 Vaginal Delivery [facility]
--- NOTE | 2024-04-06 20:25 | DCINST_ITS ---
Discharge Instructions Diet Discharge Diet: No restrictions Activity Discharge Activity: Return to Normal Activity, May Not Drive (while taking narcotic pain medications.) and May Shower May resume sexual activity in: 4-6 weeks Dressing / Incision Call your doctor if your incision/area has: Continuous Slow Oozing, Sudden Increased Bleeding, Increased Pain/ Swelling, Increased Redness and Foul Smelling Discharge Follow Up Care Please Follow Up With: Huma Irby, When: Call [phone] to make an appointment with your doctor in 6 weeks. If you had elevated blood pressure or 4th degree laceration, you will need to be seen in 2 weeks. Test Results: Test results from this visit will be discussed in further detail at your follow- up appointment, if applicable. Discharge Plan Admission Admit Date/Time: 04/06/24 10:55 Primary Reason for Your Visit: vaginal delivery Attending Provider: Huma Irby Primary Care Provider: Romaine Templeton Discharge Orders/Prescriptions Prescriptions: New naproxen 500 mg tablet 500 mg PO BID PRN (Reason: pain) Qty: 30 0RF Discontinued aspirin 81 mg capsule 81 mg PO DAILY No Action PNV-[place] 28-1-300 mg capsule PO Referrals / Follow Up: Romaine Templeton MD [Primary Care Provider] - Disposition Disposition (needs filled in before D/C Order can be placed): Home, Self Care
[2024-04-06] MEDS: Oxytocin 15 Units/NS 250ml 15 UNITS/250 ML IV.SOLN 83 UNITS IV (20:36)
[2024-04-07 03:42] VITALS: BP 127/79; PULSE 83; RESP 16
--- NOTE | 2024-04-07 07:55 | PCM.PN.OB ---
Subjective Subjective Patient doing well without complaints. Tolerating PO. Ambulating and voiding without difficulty. feeding well. Denies chest pain, shortness of breath, calf pain/swelling, fevers, chills, lightheadedness. Objective Data Objective Data Vital Signs: Vital Signs Temp Pulse Resp BP Pulse Ox O2 Del Method 99.6 F H 83 16 127/79 H 98 Room Air 04/06/24 20:19 04/07/24 03:42 04/07/24 03:42 04/07/24 03:42 04/06/24 13:42 04/07/24 03:42 Oxygen Delivery Method Room Air Weight: 202 lb Body Mass Index (BMI) 32.5 Intake & Output: Intake and Output for Last 24 Hours 04/05/24 04/06/24 04/07/24 23:59 23:59 23:59 Intake Total 1658.53 / 1658.53 250 / 250 Output Total 1550 / 1550 1300 / 1300 Balance 108.53 / 108.53 -1050 / -1050 Lab / Micro Data 04/06/24 11:35 04/06/24 11:35 Labs: Laboratory Results - last 24 hr 04/06/24 11:35: WBC 14.8 H, RBC 4.45, Hgb 13.2, Hct 39.0, MCV 87.6, MCH 29.7, MCHC 33.8, RDW Std Deviation 38.2, RDW Coeff of [place] 11.9, Plt Count 284, MPV 9.0, Immature Gran % (Auto) 0.600, Neut % (Auto) 77.9 H, Lymph % (Auto) 12.7 L, Elk % (Auto) 7.5, Eos % (Auto) 1.0, Baso % (Auto) 0.3, Absolute Neuts (auto) 11.5 H, Absolute Lymphs (auto) 1.87, Nucleated RBC % 0, Creatinine 0.52 L, Estim Creat Clear Calc 177.10, Est GFR (MDRD) Af Amer 175, Est GFR (MDRD) Non-Af 144, Uric Acid 5.0, AST 19, ALT 14, U Random Total Protein < 6.0, Urine Creatinine < 13.00, Protein/Creatinin Ratio TNP, Syphilis Total Ab Non-reactive, Blood Type O POSITIVE, Antibody Screen NEGATIVE ROS Constitutional Constitutional: Reports systems reviewed and no addt'l complaints, except as documented Cardiovascular Cardiovascular: Reports systems reviewed and no addt'l complaints, except as documented Respiratory/Chest Respiratory/Chest: Reports systems reviewed and no addt'l complaints, except as documented Gastrointestinal Gastrointestinal: Reports systems reviewed and no addt'l complaints, except as documented Physical Exam Const alert, oriented x3 and no apparent distress HEENT Head and Scalp: atraumatic Resp normal respiratory effort GI soft to palpation and non-tender Bimanual Exam - Vag & Uterus: uterus non-tender Uterus Palpation: uterus fundus firm (below Umbilicus) Assessment & Plan (1) History of pre-eclampsia in prior , currently : COMMENT: baseline PEC labs. ASA 81mg (2) Supervision of high-risk : QUALIFIERS: Trimester: third trimester Qualified Code(s): O09.93 - Supervision of high risk , unspecified, third trimester COMMENT: [id number], ALICE 04/23/24, boy, PC Michelle Julio (3) : QUALIFIERS: Weeks of gestation: 37 weeks Qualified Code(s): Z3A.37 - 37 weeks gestation of COMMENT: Neg GBS. repeat anatomy nl,decline carrier testing, NIPT low risk, nl 1 hr glucose (4) COVID: COMMENT: asa 81mg daily (5) History of hypertension: COMMENT: baseline PEC labs reviewed bps at home, checking daily at home. nsts planned at 32 weeks. deliver at 38-39. growth q 4 weeks. on 81mg asa. (6) Vaginal delivery: COMMENT: jv PLAN: Plan s/p PPD # 1 1. routine post delivery care 2. breast feeding- support given 3. rh positive 4. rubella immune
[2024-04-07 08:55] VITALS: BP 119/76; PULSE 79; RESP 16; TEMP 36.4; O2SAT 98
[2024-04-07] MEDS: Naproxen 500 MG Tablet PO ×2 (09:02→20:06)
[2024-04-07 12:10] VITALS: BP 125/76; PULSE 71; RESP 18; TEMP 36.4; O2SAT 99
[2024-04-07 17:10] VITALS: BP 128/91; PULSE 84; RESP 17; TEMP 36.5; O2SAT 100
[2024-04-07 20:07] VITALS: BP 133/77; PULSE 72; RESP 16; O2SAT 100
[2024-04-08 04:53] VITALS: BP 128/100; PULSE 72; RESP 16
--- NOTE | 2024-04-08 08:30 | PCM.DC.SUM ---
Providers Date of Admission: 04/06/24 Primary Care Physician: Dr. Romaine Templeton MD Reason For Visit: VAGINAL DELIVERY Diagnosis Discharge Diagnosis (1) History of pre-eclampsia in prior , currently : Status: Acute Code(s): O09.299 - Supervision of with other poor reproductive or obstetric history, unspecified trimester Plan: Repeat labs now (2) Supervision of high-risk : Status: Acute Code(s): O09.90 - Supervision of high risk , unspecified, unspecified trimester Qualifiers: Trimester: third trimester Qualified Code(s): O09.93 - Supervision of high risk , unspecified, third trimester (3) : Status: Acute Code(s): Z34.90 - Encounter for supervision of normal , unspecified, unspecified trimester Qualifiers: Weeks of gestation: 37 weeks Qualified Code(s): Z3A.37 - 37 weeks gestation of (4) COVID: Status: Acute Code(s): U07.1 - COVID-19 (5) History of hypertension: Status: Acute Code(s): Z86.79 - Personal history of other diseases of the circulatory system (6) Vaginal delivery: Status: Acute Code(s): O80 - Encounter for full-term uncomplicated delivery Plan Patient presents IAL, plan expectant management for , pitocin/AROM PRN if needed. Pain management: plans epidural. GBS negative . Management of any complications: see above I have reviewed the [facility] and made any clinically relevant updates. Medications at Discharge Home Medications multivit-min no.71-iron fum 28 mg-folate no.1 1 mg-dha 300 mg capsule (PNV-[place]) cap PO 09/11/23 naproxen 500 mg tablet 500 mg PO BID PRN pain #30 tabs 04/06/24 Hospital Course Operations None Procedures - ( vaginal delivery ) Summary of Care Provided Minutes Spent on Discharge: 10 Hospital Course: The patient was admitted on 04/06/24 for active labor management. She progressed to complete and delivered a viable male , however scores were 7/7 and the baby required some recessitive efforts after delivery and on the first day of life. THe patient is doing well on post day #2 but the baby will need to remain admitted for supportive care. The patient is being discharged to [facility] status as of 04/08/24 Physical Exam Const alert, oriented x3 and no apparent distress General Appearance: cooperative and comfortable Resp normal respiratory effort Cardio regular rate GI normal to inspection, nondistended, normoactive bowel sounds GI Narrative: uterus is firm below umbilicus Palpation: soft Back/Spine no CVA tenderness and thoraco-lumbar ROM normal Extremity normal to inspection, no clubbing, cyanosis or edema, no calf tenderness and no pedal edema Psych mental status grossly normal, thought process normal, cooperative, affect normal, speech normal, activity/motor behavior normal, denies homicidal ideation and denies suicidal ideation Weight / BMI Weight Weight: 202 lb Body Mass Index (BMI) 32.5 ABG / Lab / Microbiology Data 04/06/24 11:35 04/06/24 11:35 D/C Instructions Discharge Diet: No restrictions Discharge Activity: Return to Normal Activity, May Not Drive (while taking narcotic pain medications.) and May Shower May resume sexual activity in: 4-6 weeks Call your doctor if your incision/area has: Continuous Slow Oozing, Sudden Increased Bleeding, Increased Pain/ Swelling, Increased Redness and Foul Smelling Discharge Please Follow Up With: Huma Irby, DO When: Call [phone] to make an appointment with your doctor in 6 weeks. If you had elevated blood pressure or 4th degree laceration, you will need to be seen in 2 weeks. Meaningful Use Info Meaningful Use Meaningful Use Diagnoses (Choose all that apply): None applicable Ischemic Stroke Statin Dosing Therapy Reference: STATIN DOSE THERAPY REFERENCE: * Patients > 75 years receive moderate or high dose statin therapy. * Patients 75 years or YOUNGER should receive HIGH intensity statin dose unless contraindicated. You will be required to document reason for non-treatment if statin daily dose does not meet guidelines. HIGH DOSE STATIN THERAPY DAILY Atorvastatin > than or = to 40 mg Rosuvastatin > than or = to 20 mg Amlodipine + Atorvastatin > than or = to 2.5/40 mg Ezetimibe + Simvastatin 10/80 mg Simvastatin 80mg Discharge Plan Admission Admit Date/Time: 04/06/24 10:55 Primary Reason for Your Visit: vaginal delivery Attending Provider: Huma Irby Primary Care Provider: Romaine Templeton Discharge Orders/Prescriptions Prescriptions: New naproxen 500 mg tablet 500 mg PO BID PRN (Reason: pain) Qty: 30 0RF Discontinued aspirin 81 mg capsule 81 mg PO DAILY No Action PNV-[place] 28-1-300 mg capsule PO Referrals / Follow Up: Romaine Templeton MD [Primary Care Provider] - Disposition Disposition (needs filled in before D/C Order can be placed): Home, Self Care
[2024-04-08 08:47] VITALS: BP 118/75; PULSE 68; RESP 16; TEMP 36.4; O2SAT 100
== END 2024-04-08 10:30 | disposition home or self-care (01) | DRG 805 ==
LOC: WPOUT 11:12 → WP 11:27
PROVIDERS: Admitting Provider Obstetrics & Gynecology; PCP Family Medicine; Referring Provider Obstetrics & Gynecology; Visit Provider Obstetrics & Gynecology
DX: O10.02 Pre-existing essential hypertension complicating childbirth (principal); Z37.0 Single live birth; U07.1 COVID-19; O98.52 Other viral diseases complicating childbirth; Z3A.37 37 weeks gestation of pregnancy; O69.81X0 Labor and delivery complicated by cord around neck, without compression, not applicable or unspecified; O71.82 Other specified trauma to perineum and vulva; Z79.82 Long term (current) use of aspirin; O70.1 Second degree perineal laceration during delivery; O69.2XX0 Labor and delivery complicated by other cord entanglement, with compression, not applicable or unspecified; Z86.79 Personal history of other diseases of the circulatory system; O36.63X0 Maternal care for excessive fetal growth, third trimester, not applicable or unspecified
CPT/HCPCS: 59025; 59050; 82565; 82570; 84156; 84450; 84460; 84550; 85025; 86780; 86850; 86900; 86901; 99221; J7030; J7120; G0378